=== PATIENT | male | born 1990 | race Caucasian/White ===

== ENCOUNTER 2019-02-03 15:44 | Inpatient (IN) | payer OTHER ==
[~2019-02-03] VITALS: Ht 182.9 cm; Wt 120.0 kg
--- NOTE | 2019-02-03 01:38 | NUR ---
DR. JOHNSON AT BEDSIDE ASSESSING PT. UPDATES PROVIDED. ORDERS GIVEN AND UPDATED.
--- NOTE | 2019-02-03 15:50 | NUR ---
PT BIB AMBULANCE FOR COMPLAINT OF ALTERED LEVEL OF CONSCIOUSNESS. PER FAMILY PT HAS BEEN INCREASINGLY MORE CONFUSED THE PAST FEW WEEKS. PT FAMILY STATES THAT THEY TOOK HIM TO GET EVALUATED BY A PSYCHIATRIST AND THEY TESTED HIS LITHIUM LEVELS AND PER FAMILY THEY WERE QUADRUPLE THE MAXIMUM AT "4.7" AND THEY FOUND OUT 2 HOURS NETWORK OPERATIONS SPECIALIST AND THEY WERE TOLD TO COME STRAIGHT TO THE HOSPITAL. PT IS AXO X2. UNABLE TO ANSWER THE DATE AND HIS BIRTHDAY, BUT AWARE OF HIS NAME AND LOCATION. PT IS WARM TO THE TOUCH. PT SKIN IS PALE AND CLAMMY WITH DRY ORAL MUCOSA. PER DAD HE IS NOT USUALLY THIS CONFUSED AND UNAWARE. PT IS AT BEDSIDE MAKING JOKES AND TALKING WTIH DAD. PT SPEACH IS SLURRED, BUT SPEAKING IN FULL SENTENCES. PT SEEMS SLIGHTLY LETHARGIC WITH SQUINTED EYES. PT PUPILS ARE 2 AND NON REACTIVE TO THE LIGHT. PT CONNECTED TO CARDIAC AND PLETH OX. PT BREATHING EQQUAL AND SLIGHTLY TACHYPNIC. FATHER AT BEDSIDE. AWAITING MSE.
--- NOTE | 2019-02-03 15:54 | NUR ---
MATHEW TORRES AT BEDSIDE FOR EKG
--- NOTE | 2019-02-03 16:02 | NUR ---
MD FOX AT BEDSIDE FOR MSE
--- NOTE | 2019-02-03 16:18 | NUR ---
1000ML NS INFUSED ENVIRONMENTAL EMERGENCIES ASSISTANT BY [facility]
--- NOTE | 2019-02-03 16:22 | NUR ---
LAB AT BEDSIDE FOR BLOOD DRAW
--- NOTE | 2019-02-03 16:38 | NUR ---
X RAY AT BEDSIDE
--- NOTE | 2019-02-03 16:46 | NUR ---
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 PASTEURIZER FOR WIDENED QRS AND WIDE QTC AND EKG IF QRS OVER 12O GIVE SODIUM BICARB BOLUS, DOSING IS 1-2 MEQ/KG IF QTC OVER 450 THEN WANT TO KEEP ELECTROLYTES UP SO K AT 4 OR HIGHER MAGNESIUM AT 2 OR HIGHER, CALCIUM AT 9 OR HIGHER. IN MEANTIME. GIVE NS AT LEAST 150/HR . KEEPING SODIUM AT HIGH NORMAL WILL HELP GET RID OF THE LITHIUM. CHECK CHEMISTRY AND LITHIUM LEVELS Q4H UNTIL THE LITHIUM LEVELS DECREASE AT LEAST TWO TIMES IN A ROW. AND THEN Q 6H UNTIL ITS LESS THAN 1.2 IF STARTS SEIZING OR STOPS MAKING URINE THEN WE MAY NEED DIALYSIS AND TO CALL POISON CONTROL BACK
--- NOTE | 2019-02-03 16:56 | NUR ---
MD FOX MADE AWARE OF WHAT POISON CONTROL SAID
--- NOTE | 2019-02-03 17:24 | NUR ---
PT ATTEMPTED TO URINATE IN THE URINAL- UNSUCCESSFUL.
[2019-02-03 17:33] LABS: BASOPHIL % 0.2 % (0-2); PLATELET COUNT 290 x10^3mcL (130-400)
[2019-02-03 17:39] LABS: CALCIUM 8.4 mg/dL (8.5-10.1); CARBON DIOXIDE 22.8 mmol/L (21-32); CREATININE SERUM 2.4 mg/dL (0.7-1.3); POTASSIUM SERUM 4.7 mmol/L (3.5-5.1)
[2019-02-03 17:41] LABS: RED CELL DISTRIBUTION WIDTH 16.8 % (11.5-14.5)
--- NOTE | 2019-02-03 17:42 | NUR ---
PT PROVIDED WITH WATER. PT AWARE WILL NEED CATHETER TO GET URINE IF HE DOES NOT PROVIDE URINE
[2019-02-03 17:43] LABS: ALBUMIN 2.9 g/dL (3.4-5.0); BILIRUBIN TOTAL 0.7 mg/dL (0.20-1.00); TOTAL PROTEIN, SERUM 6.2 g/dL (6.4-8.2)
[2019-02-03 18:49] LABS: UA SPECIFIC GRAVITY >=1.030 (1.005-1.035); microscopic required? YES; urine erythrocyte NEGATIVE (NEGATIVE)
[2019-02-03 19:00] LABS: AMPHETAMINE QUAL UR POSITIVE (See below)
[2019-02-03] MEDS ORDERED: LISINOPRIL10 MG PO (19:15)
[2019-02-03] MEDS ORDERED: LITHIUM CARBON300 MG PO (19:16)
[2019-02-03] MEDS ORDERED: BUPROPION HCL150 M1 PO (19:16)
[2019-02-03] MEDS ORDERED: GEMFIBROZIL600 MG PO (19:17)
[2019-02-03] MEDS ORDERED: ABILIFY20 M1 PO (19:17)
[2019-02-03] MEDS ORDERED: HYDROXYZINE HYD25 MG PO (19:18)
[2019-02-03] MEDS ORDERED: BUPROPION HYDR300 MG PO (19:19)
[2019-02-03] MEDS ORDERED: ADDERALL10 MG (19:19)
[2019-02-03] MEDS ORDERED: METFORMIN HCL1000 MG PO (19:20)
[2019-02-03] MEDS ORDERED: EVEKEO10 MG PO (19:22)
--- NOTE | 2019-02-03 19:28 | NUR ---
MD FOX AT BEDSIDE FOR INCREASING LETHARGY AND LOW BP OF 89/45
--- NOTE | 2019-02-03 19:30 | NUR ---
PT PLACED IN TRENDELENBERG FOR LOW BP OXYGEN TURNED OFF TEMPORARILY FOR ABG
--- NOTE | 2019-02-03 19:32 | NUR ---
RT AT BEDSIDE FOR BLOOD GAS
--- NOTE | 2019-02-03 19:45 | NUR ---
PT IS UNCCOPERATATIVE WITH STAFF AND BEGAN TO PULL AT LINES. RT AT BEDSIDE UNABLE TO COMPLETE ABG. DR FOX NOTIFIED. PARENTS AT BEDSIDE TO TRY TO CALM PT. PT CONTINUES TO TRY AND GET OUT OF BED. REDIRECTION AND DEESCALATION TECHINQUES UNSUCESSFUL.
--- NOTE | 2019-02-03 20:02 | NUR ---
FAMILY UPDATED ON STATUS OF PT AND MADE AWARE OF SITUATION. FAMILY UNDERSTANDS AND WILL WAIT TO SEE HIM PRIOR TO TRANSFER TO ICU PER REQUEST.
[2019-02-03 20:07] VITALS: BP 159/102
--- NOTE | 2019-02-03 20:16 | NUR ---
ATTEMPTED TO CALL ICU FOR REPORT. ASHLEE DANIEL BUSY AND TECH STATED SHE WILL CALL BACK WHEN SHES READY
--- NOTE | 2019-02-03 20:29 | NUR ---
TALBERT CATH PLACED WITH 200 CC URINE OUTPUT.
--- NOTE | 2019-02-03 20:37 | NUR ---
1947: ATOMODATE 20MG IVP BY MARÍA VASQUEZ. RT AT BEDSIDE FOR INTUBATION. DR FOX AT BEDSIDE. 1949:VECURONIUM 10MG GIVEN IVP BY MARÍA VASQUEZ. DR FOX AT BEDSIDE VITALS 93/60 P-93 R-31' 1952: PT LYING ON BACK. PT CONTINUES TO MOVE. RT AND DR FOX AT BEDSIDE. DR FOX TO ORDER 10MG VECURONIUM. DUE TO CONTINUED MOVEMENT 1954: PT GIVEN 10MG VECURONIUM IVP BY MARÍA VASQUEZ. RT AT BEDSIDE WITH APPROPRIATE BAGGING. INTUBATION COMPLETED. SEE INTUBATION LOG FOR STATS VITALS STABLE P-91 BP 161/109 O2 95% 1958 PROPAFOL STARTED AT 10MCG/KG. PT LYING ON BACK. PLACED IN GOWN AND GIVEN NEW SHEETS 1999: OG PLACED BY MARÍA VASQUEZ. X RAY AT BEDSIDE FOR VERIFICATION OF PLACEMENT OF INTUBATION.
--- NOTE | 2019-02-03 20:53 | NUR ---
PARENTS AT BEDSIDE. PT LYING ON BACK. RESPIRATIONS APPROPRIATE. NO AGITATION NOTED. PT VITALS STABLE.
--- NOTE | 2019-02-03 21:11 | NUR ---
TRIED TO CALL REPORT TO ICU. UNABLE TO TAKE REPORT AT THIS TIME.
[2019-02-03 21:25] VITALS: BP 143/98
--- NOTE | 2019-02-03 21:27 | NUR ---
REPORT GIVEN TO ASHLEE TO ASSUME CARE OR PT. RT CALLED FOR TRANSPORT WITH NURSE AND EMT PROPOFAL RUNNING.
--- NOTE | 2019-02-03 21:35 | NUR ---
RECEIVED PT INTUBATED AND SEDATED ON PROPOFOL @ 10 MCG/KG/MIN. RSS = 4. RESPONDS TO VERBAL, TACTILE, AND PAINFUL STIMULUS. PUPILS 3MM IN SIZE AND BRISK B/E. 8.0 ETT @ 23 LL. ETT TO VENT: VCV/AC MODE = 5 PEEP, 16 RATE, 80% FIO2, 650 VT. BREATHING E/U. CLEAR LUNG SOUNDS THROUGHOUT. NO SIGNS OF RESP DISTRESS NOTED. O2 SAT OF 100%. OGT INTACT AND SECURED. WHITE SECRETIONS NOTED TO MOUTH. TRACHEA MIDLINE. ABD IS SOFT AND ROUNDED. MOD PULSES TO BUE AND BLE. CAP REFILL <3 SEC TO BUE AND BLE. SKIN IS WARM/DRY TO TOUCH, PALE IN COLOR. NO EDEMA NOTED. PIV TO L HAND AND R AC INTACT, PORTS PATENT, DRESSINGS CDI. F/C INTACT AND DRAINING VIA GRAVITY. URINE IS DELMI IN COLOR. POOR OUTPUT NOTED. SKIN INTACT, NO OPEN WOUNDS NOTED. JOINTS INTACT, NO JOINT SWELLING NOTED. NO CONTRACTURES NOTED. WILL RESUME CARE.
--- NOTE | 2019-02-03 22:00 | NUR ---
DR. JOHNSON AT BEDSIDE ASSESSING PT. UPDATES PROVIDED. ORDERS GIVEN AND UPDATED.
[2019-02-03 22:10] VITALS: BP 157/106
[2019-02-03 22:35] VITALS: BP 149/91
--- NOTE | 2019-02-03 22:50 | NUR ---
PROPOFOL INFUSING @ 15 MCG/KG/MIN. PT RESTLESS AND MOVING HANDS TOWARDS ETT. RSS = 4. WILL CONTINUE TO MONITOR.
--- NOTE | 2019-02-03 23:00 | NUR ---
POISON CONTROL CALLED AND STATED TO HAVE LITHIUM LEVELS BE DRAWN Q4H. ALSO RECOMMENDS FOR HD BASED ON PT'S CURRENT LABS.
--- NOTE | 2019-02-03 23:36 | NUR ---
Spoke to Dr. Veras regarding pt having jerking movements. stated to monitor the patient. Dr. Veras informed about poison control recommendation. Dr. Veras stated to do a Ong level in the morning and the Risk control already notified about the patient's status and will decide tomorrow morning when they see the patient.
[2019-02-03 23:50] VITALS: BP 134/63
[2019-02-04] VITALS (19 sets, daily range): BP systolic 92–170; BP diastolic 40–95
--- NOTE | 2019-02-04 | NUR ---
AFTER MULTIPLE ATTEMPTS TO REORIENT AND DECREASE STIMULI, PT STILL REMAINS RESTLESS AND TRYING TO MOVE HANDS TOWARDS ETT AND OGT. BILATERAL SOFT WRIST RESTRAINTS APPLIED. JOINTS INTACT, NO JOINT SWELLING NOTED. WILL CONTINUE TO MONITOR.
--- NOTE | 2019-02-04 03:47 | NUR ---
PT STARTED BLEEDING FROM NOSE AND MOUTH. 500CC NOTED IN SUCTION CANISTER. DR. JOHNSON MADE AWARE ABOUT PT'S CONDITION AND STATED FOR "THE ER TO HELP WITH THE BLEEDING." NO NEW OTHER ORDERS AT THIS TIME.
[2019-02-04 05:13] LABS: PLATELET COUNT 272 x10^3mcL (130-400)
[2019-02-04 05:16] LABS: RED CELL DISTRIBUTION WIDTH 16.8 % (11.5-14.5)
[2019-02-04 05:25] LABS: BAND NEUTROPHIL 3 % (0-10); MONOCYTE 1 % (0-7); SEGMENTED NEUTROPHILS 89 % (37-75)
--- NOTE | 2019-02-04 05:25 | NUR ---
RADIOLOGY CALLED AND STATED THAT THE OGT WAS NOT IN PLACE AND WAS IN THE RIGHT BRONCHUS. OGT DISCONTINUED. BLOOD-TINGED SECRETIONS NOTED FROM MOUTH. ORAL CARE PROVIDED. VS STABLE. WILL CONTINUE TO MONITOR.
[2019-02-04 05:28] LABS: rbc morphology (normal/abnorm) ABNORMAL (NORMAL)
[2019-02-04 05:29] LABS: PLATELET MORPHOLOGY PLATELETS NORMAL; tear drop cell (dacryocyte) 1+
[2019-02-04 05:35] LABS: BILIRUBIN TOTAL 0.84 mg/dL (0.20-1.00); CALCIUM 8.5 mg/dL (8.5-10.1); CARBON DIOXIDE 18.4 mmol/L (21-32); CREATININE SERUM 1.9 mg/dL (0.7-1.3); POTASSIUM SERUM 4.8 mmol/L (3.5-5.1)
[2019-02-04 05:41] LABS: ALBUMIN 2.6 g/dL (3.4-5.0); TOTAL PROTEIN, SERUM 5.3 g/dL (6.4-8.2)
--- NOTE | 2019-02-04 07:10 | NUR ---
GIVEN REPORT TO ERI DANIEL. ALL QUESTIONS AND CONCERNS ADDRESSED. WILL ENDORSE CARE.
--- NOTE | 2019-02-04 07:15 | NUR ---
PT RESTING IN BED. SEDATED ON PROPOFOL @ 30 MCG/KG/MIN. RSS 4. RESPONDS TO VERBAL STIMULI. PERIODS OF AGITATION NOTED. PROPOFOL INCREASED TO 35 MCG/KG/MIN. OPENS EYES SPONT. DOES NOT FOLLOW COMMANDS. ETT 8.0 AND 23 @ LL INTACT AND SECURED ATTACHED TO VENT VCV AC MODE SETTINGS: VT 600, RR 16, PEEP 5 AND FIO2 50%. CHEST EXPANSION SYMM, BREATHING E/U AND REGULAR EFFORT. BLOODY SECRETIONS NOTED TO ETT. CREW DIRECTOR IN PLACE. NSR ON MONITOR. ABD ROUND, SOFT. NO EDEMA NOTED. BILATERAL SOFT WRIST RESTRAINTS IN PLACE WITH PULSES PALPABLE DISTALLY. NS INFUSING @ 150 ML/HR. BED IN LOWEST POSITION, CALL LIGHT WITHIN REACH.
--- NOTE | 2019-02-04 09:00 | NUR ---
DR. GALAVIZ ON PHONE WITH FABIANA BELLOEZA, PT'S FATHER, DISCUSSED LASHELL CATHETER PLACEMENT AND NEED FOR TEMPORARY HEMODIALYSIS. RISKS/BENEFITS EXPLAINED. CONFIRMED WITH PT'S FATHER AND IS IN AGREEMENT.
--- NOTE | 2019-02-04 10:05 | NUR ---
SPOKE WITH TAURUS FROM POISON CONTROL. UPDATED ON LAB VALUES AND VITAL SIGNS. PER TAURUS RECOMMENDATION IS DIALYSIS. INFORMED OF CURRENT ORDERS FOR DIALYSIS AND STATES SHE IS IN AGREEMENT. WILL CALL BACK LATER FOR UPDATES S/SX TO WATCH FOR: HYPOTENSION, SEIZURE PRECAUTIONS, AND ENCEPHALOPATHY.
--- NOTE | 2019-02-04 10:12 | NUR ---
PT'S PARENTS, FABIANA AND ROCKY, AT BEDSIDE. UPDATED ON PLAN OF CARE. VERBALIZE UNDERSTANDING.
--- NOTE | 2019-02-04 11:15 | NUR ---
DR. MEDINA, ALICJA MODEL AND MOLD MAKER PLASTER ADN MYSELF AT BEDSIDE FOR RIGHT FEMORAL LASHELL PLACEMENT.
--- NOTE | 2019-02-04 11:48 | NUR ---
RIGHT FEMORAL LASHELL CATHETER COMPLETED AT THIS TIME BY DR. MEDINA. PT TOLERATED WELL. ONE DOSE 2 MG IVP ATIVAN GIVEN FOR PROCEDURE (SEE EMAR)
--- NOTE | 2019-02-04 12:06 | NUR ---
OGT INSERTED AT THIS TIME. AIR BOLUS AUSCULTATED. XRAY ORDERED FOR VERIFICATION
--- NOTE | 2019-02-04 12:29 | NUR ---
ABG OBTAINED ON VENT AT 40% FIO2. PA02 69.9 SO FIO2 TITRATED BACK UP TO 50%. RN NOTIFIED. UNABLE TO OBTAIN STATIC COMPLIANCE OR PLATEAU PRESSURE AT THIS TIME, VENT IS UNABLE TO ACHIEVE STABILITY TO MEASURE.
--- NOTE | 2019-02-04 13:50 | NUR ---
SPOKE WITH DR. CASTLE AND UPDATED ON KUB RESULTS. STATES NO CT AT THIS TIME AND TO INPUT ORDER FOR OK TO USE OGT. WILL COMPLETE ORDERS GIVEN
--- NOTE | 2019-02-04 14:15 | NUR ---
HD COMPLETE AT THIS TIME. FILTRATION ONLY. PER HD RN MAY NEED SECOND ROUND TOMORROW AND TO ASK TEAM FACILITATOR WHEN HE IS NEXT IN
--- NOTE | 2019-02-04 16:12 | NUR ---
GRV 10 ML. GLUCERNA TF INITIATED @ 10 ML/HR WITH 50 ML FWF Q6H. WILL CONTINUE TO MONITOR
--- NOTE | 2019-02-04 18:10 | NUR ---
SPOKE WITH TAURUS FROM POISON CONTROL. UPDATES PROVIDED
--- NOTE | 2019-02-04 19:20 | NUR ---
REC'D REPORT FROM ERI DANIEL TO ASSUME CARE. PT INTUBATED AND SEDATED ON PROPOFOL 35 MCG/KG/MIN WITH RSS 4. PERRLA NOTED. UNABLE TO FOLLOW COMMANDS. 8.0 ETT SECURED, 24 CM @ LL. NO JVD NOTED. TRACHEA MIDLINE. OGT INTACT AND SECURED. ETT TO VENT: AC MODE, RATE 16, TV 600, PEEP 5, FIO2 50%. CHEST RISE EQUAL AND SYMMETRICAL. LUNG SOUNDS RHONCHI BUL, DIM BASES. SENIOR SOLUTIONS CONSULTANT IN PLACE SHOWING NSR. BP 107/70 MAP 81, HR 81. CHEST WALL STABLE. PULSES PALPABLE X4. CAP REFILL < 3 SECS. NO EDEMA NOTED. IV TO L HAND AND RAC INTACT AND PATENT. IVF NS INFUSING @ 150ML/HR. ABLE TO MOVE ALL EXT. BUE SOFT WRIST RESTRAINTS IN PLACE FOR PT SAFETY. OGT INTACT AND PATENT, GLUCERNA INFUSING @ 10ML/HR, FWF 50ML Q4H. GRV=0. ABD ROUND, SOFT, NONTENDER TO TOUCH. BOWEL SOUNDS ACTIVE. NO EPISODES OF N/V NOTED. F/C INTACT AND PATENT DRAINING VIA GRAVITY DELMI COLORED URINE. NO SCROTAL EDEMA OR PENILE DISCHARGE NOTED. SKIN INTACT. WARM DRY TO TOUCH. TEMP 101.0 F, COOLING MEASURES AND TYLENOL PROVIDED. PTS MOTHER AND FATHER AT BEDSIDE. UPDATED ON PLAN OF CARE, VERBALIZED UNDERSTANDING. ALL NEEDS MET AT THIS TIME. WILL CONTINUE TO MONITOR.
--- NOTE | 2019-02-04 20:30 | NUR ---
PATRICIO TINAJERO AT BEDSIDE, ASSISTED TO CHANGE ANCHOR FAST ON ETT.
--- NOTE | 2019-02-04 23:00 | NUR ---
VENT ALARM HIGH PRESSURING, PT SEEN BITING ON TUBE. PROPOFOL TITRATED UP TO 45 MCG/KG/MIN.
[2019-02-05] VITALS (19 sets, daily range): BP systolic 103–125; BP diastolic 51–78
--- NOTE | 2019-02-05 04:30 | NUR ---
COOL BED BATH PROVIDED. NO BM NOTED. LINENS CHANGED. F/C AND VAP CARE PROVIDED. TURNED AND REPOSITIONED Q2H FOR PRESSURE RELIEF.
--- NOTE | 2019-02-05 04:47 | NUR ---
PT WITH RSS 5, FENTANYL TITRATED DOWN TO 35 MCG/KG/MIN.
[2019-02-05 05:43] LABS: PLATELET COUNT 133 x10^3mcL (130-400); RED CELL DISTRIBUTION WIDTH 14.3 % (11.5-14.5)
[2019-02-05 06:04] LABS: ALKALINE PHOSPHATASE 108 U/L (46-116); ALT/SGPT 36 U/L (16-63); AST/SGOT 89 U/L (15-37); BILIRUBIN TOTAL 0.85 mg/dL (0.20-1.00); CALCIUM 8.6 mg/dL (8.5-10.1); CARBON DIOXIDE 39.9 mmol/L (21-32); CHLORIDE SERUM 101 mmol/L (98-107); CREATININE SERUM 0.9 mg/dL (0.7-1.3); GFR1 > 60 mL/min; GLUCOSE SERUM 143 mg/dL (74-106); MAGNESIUM 1.6 mg/dL (1.8-2.4); MONOCYTE 9 % (0-7); MYELOCYTE 1 % (0-2); SEGMENTED NEUTROPHILS 65 % (37-75); SODIUM SERUM 146 mmol/L (136-145)
[2019-02-05 06:07] LABS: TOTAL IRON BINDING CAPACITY 258 ug/dL (250-450); rbc morphology (normal/abnorm) ABNORMAL (NORMAL); schistocyte (helmet cell) 1+
[2019-02-05 06:08] LABS: PLATELET MORPHOLOGY PLATELETS DECREASED
[2019-02-05 06:11] LABS: ALBUMIN 2.5 g/dL (3.4-5.0); PHOSPHOROUS 0.9 mg/dL (2.5-4.9); TOTAL PROTEIN, SERUM 5.1 g/dL (6.4-8.2)
[2019-02-05 06:12] LABS: POTASSIUM SERUM 2.6 mmol/L (3.5-5.1)
[2019-02-05 06:16] LABS: IRON 12 ug/dL (65-170)
--- NOTE | 2019-02-05 06:20 | NUR ---
CALLED [facility], RELAYED ALL CRITICAL LAB VALUES. TELEPHONE GIVEN TO TRANSFUSE 2 UNITS OF PRBC, POTASSIUM CHLORIDE 40MEQ X1, K-PHOS 3OMM X1 NOW. TELEPHONE ORDER READ BACK. ORDER NOTED AND CARRIED OUT.
--- NOTE | 2019-02-05 06:29 | NUR ---
CALLED FABIANA (FATHER) FOR BLOOD TRANSFUSION CONSENT, ALL QUESTIONS AND CONCERNS ADDRESSED, CONSENT GIVEN BY FABIANA (FATHER). ELZBIETA DANIEL WITNESSED CONSENT.
--- NOTE | 2019-02-05 08:28 | NUR ---
RR 41 ON VENTILATOR. PT BITING ON ETT. PROPOFOL TITRATED FROM 35 MCG/KG/MIN TO 40 MCG/KG/MIN
--- NOTE | 2019-02-05 08:30 | NUR ---
BLISTERING NOTED TO LEFT LATERAL INDEX FINGER 1ST METACARPAL JOINT. L HAND IV SITE FLUSHED, NO S/SX OF INFILTRATION AND SITE WNL. WILL PHOTOGRAPH AND PLACE IN CHART.
--- NOTE | 2019-02-05 08:51 | NUR ---
FI02 TITRATED DOWN TO 40% BY RT LUIS. CURRENT 02 SAT 100%. NO SIGNS OF RESP DISTRESS. WILL CONTINUE TO MONITOR.
--- NOTE | 2019-02-05 09:33 | NUR ---
SCD'S APPLIED TO BLE.
--- NOTE | 2019-02-05 09:45 | NUR ---
BLE SCDS PLACED ON PT AT THIS TIME.
--- NOTE | 2019-02-05 10:12 | NUR ---
SPOKE WITH TAURUS FROM POISON CONTROL. UPDATED ON LABS. STATES LITHIUM HAS A POTENTIAL TO REBOUND AND RECOMMENDS REPEAT LITHIUM LEVEL AT SOME POINT TODAY.
--- NOTE | 2019-02-05 10:25 | NUR ---
FI02 TITRATED DOWN TO 30% BY RT LUIS. CURRENT 02 SAT 96%. NO SIGNS OF RESP DISTRESS. WILL CONTINUE TO MONITOR.
--- NOTE | 2019-02-05 12:27 | NUR ---
DR. CASTLE AT BEDSIDE SPEAKING WITH PT'S MOTHER. UPDATED ON PLAN OF CARE. PER DR. SANTOS PLAN OF CARE IS TO POTENTIALLY EXTUBATE TOMORROW USING SBT AND RSV WEANING PARAMETERS. MOTHER IN AGREEMENT. PT MAY REQUIRE PRECEDEX R/T AUTISM. POISON CONTROL RECOMMENDATION GIVEN TO DR. SANTOS.
--- NOTE | 2019-02-05 13:13 | NUR ---
Initial Nutrition Assessment: [facility] ICU-6 Dx: Ammonia, lithium toxicity PMHx: ADHD, anxirty, Bipolar, Autisim PSHx: None Labs: (02/05) Na:146H, K:2.6L, BH, Phos:0.9L, AST:89H, A1c:8H, WBC:20H, H/H:6.6/19L Meds: Ativa, Diprivan, Flagyl, Humulin, Lovenox, Protonix, NS IV, Current nutrition support: Glucerna at 10ml/hr. TF Intake: (02/05) 130ml I/O: (02/04) 1233/1250(-17ml) (02/05) 4353/1610(+2743ml) Ht: 72in, 6 ft Wt: 264#, 120kg BMI: 35.9kg/m2 (obese) Bed scale: (02/05) 120kg IBW:178#, 81kg %IBW:148% UBW: unable to obtain Age: 28 y/o male Food Allergies: NKFA Skin:blister to left finer Oscar: 12 Edema: trace non-pitting edema. NS infusing at 150ml/hr GI:hypoactive bowel sounds Last BM: no BM noted Nutrition Consult: TF goal Per H&P, pt accidentally took Lyrica which belonged to his mother. Pt became hypotensive in the ER and received bolus of fluid. Pt became combative, hypotensice adn desaturated in the ER and was intubated. RD received call from RN regarding nutrition consult placed yesterday for TF. RD recommended Glucerna at 55ml/hr, FWF:50ml q 4hr via NGT to better meet pts estimated needs. Current Nutrition support of Glucerna at 10ml/hr provides:288kcal, 14g protein. Problem with: N/V/D/C: No Problems with: Chewing: Swallowing: No Current appetite: N/A due to current NPO status on TF Recent wt change:unable to obtain %wt change:N/A Vitamin/Supplement use:None per H&P Special diet at home: Physical activity:unable to obtain Nutrition education given : not appropriate at this time due to pt intubated and sedated Food-drug interactions? Education given? No Estimated Nutritional Needs Based on actual body weight 120kg Vent in L/min: 15 Temperatire:37.2, MAP:85 Energy: 5012-6016 vs 2431kcal/d (25-30kcal/kg using IBW:81kg vs. PSU 2003b for vent ) Protein: 81-97g/d (1-1.2g/kg of IBW:81kg for maintenance) Fluid: 2000-2400ml/d (1 ml/kcal) or per doctor Nutrition Diagnosis 1. Inadequate enteral nutrition infusion related to low TF rate as evidenced by current TF rate only meeting 12% caloric needs and 17% protein needs. Intervention 1. Recommend increase goal rate of Glucerna 1.2 to 55ml/hr, FWF:50ml m1 q 6hr to provide 1584kcal, 86g protein and 1263ml total fluid daily. Propofol at 40mcg/kg/min provides an additional 760kcal. TF and Propofol provide total 2344kcal, 86g protein. This meets 100% caloric and protein needs. Monitor/Evaluate Goal: TF intake at least 75% of estimated needs Monitor: TF/tolerance intake, Labs, GI function F/U in 2-3 days as high risk: 6/4-5
--- NOTE | 2019-02-05 14:23 | NUR ---
GRV 0 ML. ABD SOFT, ROUND. TF INCREASED FROM 10 ML/HR TO 20 ML/HR.
--- NOTE | 2019-02-05 14:42 | NUR ---
1 UNIT PRBC INITIATED AT THIS TIME. R HAND 20G PERIPHERAL IV SITE INITIATED FOR BLOOD ADMINISTRATION NO S/SX OF INFILTRATION. SEE BLOOD BANK SHEET FOR VITAL SIGNS.
--- NOTE | 2019-02-05 17:00 | NUR ---
DR. GALAVIZ AT BEDSIDE SPEAKING WITH PT'S GIRLFRIEND AND FATHER UPDATES PROVIDED AND ALL QUESTIONS ADDRESSED
--- NOTE | 2019-02-05 17:00 | NUR ---
DR. GALAVIZ AT BEDSIDE SPEAKING WITH PT'S MOTHER. ALL QUESTIONS ADDRESSED. STATES WE WILL CONTINUE TO MONITOR LITHIUM LEVEL AND IF REMAINS TRENDING DOWNWARDS THEN NO MORE DIALYSIS WILL BE REQUIRED
--- NOTE | 2019-02-05 17:56 | NUR ---
GRV 15 ML. ABD SOFT,R OUND. TF INCREASED FROM 20 ML/HR TO 30 ML/HR
--- NOTE | 2019-02-05 19:15 | NUR ---
RECEIVED PT INTUBATED AND SEDATED ON PROPOFOL @ 40 MCG/KG/MIN, RSS=4. PT RESPONDS TO TACTILE STIMULI, UNABLE TO FOLLOW SIMPLE COMMANDS. PUPILS 3MM BRISK RESPONSE TO LIGHT B/L, PERRLA. NO FACIAL DROOP. GAG REFLEX PRESENT WHEN SUCTIONED.PT INTUBATED TO VENT, INTACT. OGT INTACT/SECURED, AIR AUSCULTATED OVER GASTRIC REGION FOR PLACEMENT, CONFIRMED BY XRAY. TRACHEA MIDLINE, NO DRAINAGE TO EENT.ETT 8.0, 24 LL. ORAL CARE PROVIDED PER VAP PROTOCOL. VENT SETTINGS VCV-AC MODE FIO2 30%, RATE 16, VT 600, PEEP 5. LUNG SOUNDS RHONCHI BUL, DIMINISHED BASES. CHEST RISE/FALL SYMMETRIC, E/U BREATHING.S1/S2 SOUNDS HEARD, CHEST WALL STABLE, NO S/S OF CHEST PAIN.SKIN COLOR CONSISTENT WITH ETHNICITY, CAP REFILL <3 SEC X4 EXTREMITIES, PULSES MODERATE X4 EXTREMITIES. NON PITTING EDEMA TO BUE. SCDS. BLOOD TRANSFUSION INFUSING AT THIS TIME.GEN WEAKNESS. NO CONTRACTURES/DEFORMITIES, PT ON TURN SCHED Q2H. RESTRAINTS ON FOR PT SAFETY PT REACHES FOR ETT/OGT WHEN RESTRAINTS OFF. JOINTS INTACT.GLUCERNA TUBE FEEDING INFUSING @ 30 ML/HR, FWF 50 ML Q6H. GRV=0. TOLERATING WILL ADVANCE. NO S/S OF N/V.ACTIVE BOWEL SOUNDS X4 QUADRANTS, ABD SOFT/ROUND. NO BM NOTED.F/C DRAINING TO GRAVITY INTACT, DELMI URINE. NO PENILE EDEMA OR DISCHARGE NOTED. RIGHT FEMORAL LASHELL CATH, CDI. IV TO RAC, RH, LH PORTS PATENT, INFUSING, NO S/S OF INFILTRATION. SKIN WARM TO TOUCH. BLISTER NOTED TO LEFT HAND FINGER, NYA. BED AT LOWEST SETTING, CALL LIGHT WITHIN REACH, HOB ELEVATED 30 DEGREES, FAMILY UPDATED ON POC.
--- NOTE | 2019-02-05 20:15 | NUR ---
BLOOD TRANSFUSION FINISHED AT THIS TIME, NO S/S OF ANY ADVERSE BLOOD TRANSFUSION REACTIONS NOTED. PT REMAINS INTUBATED. VITAL SIGNS, TEMP 100.3, PULSE 84, NIBP 109/61, RESP 26 VENT, O2 94%.
--- NOTE | 2019-02-05 21:17 | NUR ---
AXILLARY TEMP TAKING, 101.1. ADMINISTERING TYLENOL PER EMAR. COOLING MEASURES IN PLACE AT THIS TIME WITH ICE PACKS AND BLANKETS OFF.
--- NOTE | 2019-02-05 22:00 | NUR ---
TF INCREASED FROM 30 ML/HR TO 40 ML/HR. GRV 15 ML. ABD SOFT, ROUND. PT TOLERATING. NO BM.
--- NOTE | 2019-02-05 22:16 | NUR ---
RECHECKED AXILLARY TEMP POST TYLENOL, TEMP 101.3. COOLING MEASURES REMAIN INTACT. BLANKETS REMAIN OFF, TEMPERATURE IN ROOM DECREASED. DR. JOHNSON MADE AWARE IN PERSON AT NURSING STATION
--- NOTE | 2019-02-05 22:45 | NUR ---
PROPOFOL TITRATED TO 50 MCG/KG/MIN TO ACHEIVE RSS=4. PT RSS=3 AT THIS TIME, EYES OPEN UPON ENTERING ROOM MOVING BUE EXTREMITIES AND HEAD, UNABLE TO FOLLOW COMMANDS. PT RESPIRATION IN THE 30'S.
[2019-02-06] VITALS (16 sets, daily range): BP systolic 96–148; BP diastolic 55–78
--- NOTE | 2019-02-06 01:16 | NUR ---
AXILLARY TEMP 100.0. WILL ADMINISTERING TYLENOL PER EMAR. COOLING MEASURES IN PLACE AT THIS TIME WITH ICE PACKS AND BLANKETS OFF.
--- NOTE | 2019-02-06 02:00 | NUR ---
TF INCREASED FROM 40 ML/HR TO 50 ML/HR. GRV 15 ML. ABD SOFT, ROUND. PT TOLERATING. NO BM.
--- NOTE | 2019-02-06 05:50 | NUR ---
PROPOFOL TITRATED TO 40 MCG/KG/MIN FOR WEANING TRIALS IN AM.
--- NOTE | 2019-02-06 06:00 | NUR ---
TF INCREASED FROM 50 ML/HR TO 55 ML/HR. GRV 10 ML. ABD SOFT, ROUND. PT TOLERATING. NO BM. GOAL MET ON TUBE FEEDING.
--- NOTE | 2019-02-06 06:09 | NUR ---
AXILLARY TEMP 100.1. ADMINISTERING TYLENOL PER EMAR. COOLING MEASURES INTACT PLACE AT THIS TIME WITH ICE PACKS AND BLANKETS OFF.
[2019-02-06 06:10] LABS: CALCIUM 9.2 mg/dL (8.5-10.1); CARBON DIOXIDE 21.9 mmol/L (21-32); CHLORIDE SERUM 111 mmol/L (98-107); CREATININE SERUM 1.1 mg/dL (0.7-1.3); GFR1 > 60 mL/min; GLUCOSE SERUM 266 mg/dL (74-106); MAGNESIUM 1.9 mg/dL (1.8-2.4); POTASSIUM SERUM 4.3 mmol/L (3.5-5.1); SODIUM SERUM 141 mmol/L (136-145)
--- NOTE | 2019-02-06 06:20 | NUR ---
PROPOFOL TITRATED TO 30 MCG/KG/MIN FOR WEANING TRIALS IN AM.
--- NOTE | 2019-02-06 06:30 | NUR ---
PROPOFOL TITRATED TO 10 MCG/KG/MIN FOR WEANING TRIALS IN AM.
--- NOTE | 2019-02-06 06:30 | NUR ---
PROPOFOL TITRATED TO 20 MCG/KG/MIN FOR WEANING TRIALS IN AM.
--- NOTE | 2019-02-06 06:40 | NUR ---
PROPOFOL TITRATED TO 10 MCG/KG/MIN FOR WEANING TRIALS IN AM.
--- NOTE | 2019-02-06 06:50 | NUR ---
PROPOFOL TITRATED OFF FOR WEANING TRIALS IN AM.
--- NOTE | 2019-02-06 07:14 | NUR ---
GAVE REPORT TO GO SANCHEZ RN. UPDATES GIVEN, QUESTIONS ANSWERED, ENDORSED CARE.
--- NOTE | 2019-02-06 07:30 | NUR ---
PATIENT BREATHING 50'S, UNABLE TO FOLLOW COMMANDS, BITING ON ETT, DESATING TO 80'S. PROPOFOL INITIATED BACK AT MAX DOSE 50 MCG/KG/HR.
[2019-02-06 07:57] LABS: BASOPHIL % 0.3 % (0-2); PLATELET COUNT 233 x10^3mcL (130-400)
[2019-02-06 07:59] LABS: RED CELL DISTRIBUTION WIDTH 15.9 % (11.5-14.5)
--- NOTE | 2019-02-06 08:35 | NUR ---
PATIENT AGITATED AND BREATHING 40'S, MAXED ON PROPOFOL, ATIVAN PRN GIVEN AT THIS TIME.
--- NOTE | 2019-02-06 16:17 | NUR ---
PER , INITIATE PRECEDEX DRIP FOR WEANING FOR PATIENT FOR TOMORROW. PRECEDEX INITIATED AT 0.2 MCG/KG/HR. PRIMARY RN DANIEL DE LEON AND AT BEDSIDE.
--- NOTE | 2019-02-06 18:57 | NUR ---
PT RECIEVED OFF PROPOFOL IN A.M./PT VERY AGITATED, DESATURATING ON VENT AND BITING E.T. HARD/PT OFF PROPOFOL 90MINUTES AND STILL NOT FOLLOWING COMMANDS/PT BACK TO PROPOFOL,, HAD TO INCREASE FIO2 TO 60% from 30%, and increase sedation to 50mcgs/pt otherwise pulled ngt out, too agitated to replace but will try later//hr sinus with 1st degree avb, bp stable and pt cannot tell if symptomatic
--- NOTE | 2019-02-06 19:00 | NUR ---
RECIEVED REPORT FOR PT. RESUMED CARE OF PT. SEE SHIFT ASSESSMENT.
--- NOTE | 2019-02-06 19:03 | NUR ---
1400-pt still too agitated to replace ngt/precidex ordered for weaning after propofol off and if pt remains agitated but credit charge authorizer insisted run precidex with propofol/pt family at bedside/pt asfebrile now/mw
--- NOTE | 2019-02-06 19:05 | NUR ---
1700 off precidex/only propofol on board now//pt sedated well and fio2 is 40% now/pt cleaned AND repositioned/tolerated well, still too much fight to replace ngt//mw
[2019-02-07] VITALS (19 sets, daily range): BP systolic 94–135; BP diastolic 46–79
--- NOTE | 2019-02-07 | NUR ---
PT STILL RESTING CALMLY IN BED. WILL CONT TO MONITOR.
--- NOTE | 2019-02-07 01:00 | NUR ---
COOLING MEASURES IN PLACE.
--- NOTE | 2019-02-07 01:02 | NUR ---
PT W/ ELEVATED TEMP 100.3. COOLING MEASURES IN PLACE. WILL CONT TO MONITOR.
[2019-02-07 05:29] LABS: BASOPHIL % 0.5 % (0-2); PLATELET COUNT 302 x10^3mcL (130-400)
[2019-02-07 05:32] LABS: RED CELL DISTRIBUTION WIDTH 16.3 % (11.5-14.5)
[2019-02-07 05:41] LABS: CALCIUM 9.2 mg/dL (8.5-10.1); CARBON DIOXIDE 16.8 mmol/L (21-32); CHLORIDE SERUM 114 mmol/L (98-107); CREATININE SERUM 0.9 mg/dL (0.7-1.3); GFR1 > 60 mL/min; GLUCOSE SERUM 215 mg/dL (74-106); MAGNESIUM 1.9 mg/dL (1.8-2.4); POTASSIUM SERUM 4.6 mmol/L (3.5-5.1); SODIUM SERUM 144 mmol/L (136-145)
--- NOTE | 2019-02-07 05:44 | NUR ---
ATTEMPTED TO PLACE OGT AND NGT W/ NO SUCCESS. PT WIGGLING HEAD IN REFUSAL AND NOSE BLEED PRESENT UPON INSERTION OF NG TUBE. WILL ENDORSE AND CONT TO MONITOR.
--- NOTE | 2019-02-07 07:25 | NUR ---
REPORT GIVEN TO MARÍA SHEPARD. ALL CONCERNS ADDRESSED. RELEASED FROM CARE OF PT.
--- NOTE | 2019-02-07 07:45 | NUR ---
PATIENT REMAINS INTUBATED AND SEDATED WITH PRECEDEX AT 0.4MCG/KG/HR; PATIENT OPENS HIS EYES TO TACTILE STIMULI BUT UNABLE TO FOLLOW COMMANDS. PIL PUPILS WITH BRISK REACTION 3MM TO LIGHT. PATIENT STARTS TO KICK, SHADE HIS HEAD, MOVES HIS ARMS AND BODY AND DOES NOT WANT TO CARE; PRECEDEX TITRATED UP TO 0.6MCG/KG/HR. ETT 8.0 SECURED AT 24CM AT LIPLINE. ETT TO VENT VIA VCV/AC MODE: FIO2 40%, RATE 16, VT 600 AND PEEP 5. PATIENT HAS FREQUENT EPISODES OF FAST BREATHING WITH RR >30S. IVF NS AT 150ML/HR. IV SITES TO RAC, RIGHT HAND AND LEFT HAND. TELE # 6 READS NORMAL SINUS RHYTHMS AT THIS TIME. LASHELL CATH SITE AT RIGHT FEMORAL WITH DRESSING INTACT. SOFT WRIST RESTRAINTS TO BOTH WRISTS. WILL RELEASE THE RESTRAINTS FOR ROM Q2HR/PRN. HEAD OF BED ELEVATED; SIDE RAILS UP X3. BED IS AT LOWEST POSITION, AND ALARM IS ON.
--- NOTE | 2019-02-07 07:50 | NUR ---
PATIENT IS SO RESTLESS/AGITATED; BITING, KICKING AND MOVING IN BED. ATIVAN 1MG IVP MEDICATED TO THE PATIENT PRN ORDERED.
--- NOTE | 2019-02-07 07:50 | NUR ---
PATIENT IS SO RESTLESS/AGITATED; BITING TUBE, MOVING AND KICKING. ATIVAN 1MG IVP GIVEN TO THE PATIENT AND PRECEDEX TITRATED TO 0.7MCG/KG/HR.
--- NOTE | 2019-02-07 08:30 | NUR ---
THE PATIENT IS RESTLESS AGAIN AFTER CHEST XR TAKEN; PRECEDEX TITRATED FROM 0.6MCG/KG/HR TO 0.7MCG/KG/HR.
--- NOTE | 2019-02-07 09:27 | NUR ---
THE PATIENT IS SO RESTLESS; FIGHTING THE VENT WITH RR WENT UP TO 40S. THE FAMILY (MOTHER AND SISTER) IS AT BEDSIDE TO COMFORT THE PATIENT BUT THE PATIENT IS STILL RESTLESS. ATIVAN 2MG IVP IS ADMISTERED TO THE PATIENT TO COMFORT THE PATIENT.
--- NOTE | 2019-02-07 09:56 | NUR ---
SPOKE TO DR SANTOS AND PROVIDED PATIENT UPDATE. NEW ORDERS RECEIVED. WILL CARRY OUT ORDERS. WILL CONTINUE TO MONITOR.
--- NOTE | 2019-02-07 10:19 | NUR ---
PROPOFOL INITIATED AT 25MCG/KG/MIN AND PRECEDEX TITRATED DOWN TO 0.5MCG/KG/HR.
--- NOTE | 2019-02-07 10:40 | NUR ---
KYLER FROM POISON CONTROL CALLED AND ASKED FOR UPDATE. UPDATE INCLUDING LAB RESULT PROVIDED TO KYLER.
--- NOTE | 2019-02-07 10:50 | NUR ---
PATIENT'S SPO2 88%. FIO2 ON VENT TITRATED FROM 40% TO 65%. LUIS TINAJERO MADE AWARE.
--- NOTE | 2019-02-07 11:12 | NUR ---
PATIENT'S SPO2 98%. FIO2 ON VENT TITRATED TO 40%. LUIS RT ON UNIT AND MADE AWARE.
--- NOTE | 2019-02-07 13:33 | NUR ---
DR. NGUYEN IN TO SEE THE PATIENT AND WAS UPDATED OF THE PATIENT'S STATUS.
--- NOTE | 2019-02-07 15:15 | NUR ---
ATTEMPTING TO TITRATE PROPOFOL DRIP DOWN TO 30MCG/KG/MIN OR PRECEDEX DOWN TO 4MCG/KG/HR; HOWEVER, THE PATIENT STARTS TO FIGHT THE VENT AND RR INCREASE TO 50S. PROPOFOL MAINTAINS AT 40MCG/KG/MIN AND PRECEDEX AT 0.6MCG/KG/HR.
--- NOTE | 2019-02-07 16:28 | NUR ---
SCREEN FOR LOW PAOLA SCALE AT RISK PRESSURE ULCER INJURY PREVENTION INTERVENTIONS IN PLACE. -TURN AND REPOSITION PATIENT Q 2H OFFLOAD LEFT AND RIGHT HIPS -ASSESS AND MONITOR SKIN CONDITION DURING POSITION CHANGE -OFFLOAD BILATERAL HEELS BY PLACING PILLOWS UNDER CALVES AT ALL TIMES, UNLESS OTHERWISE CONTRAINDICATED -PRESSURE REDISTRIBUTION SURFACE THERAPY -KEEP SKIN CLEAN AND DRY AT ALL TIMES.
--- NOTE | 2019-02-07 17:43 | NUR ---
PATIENT JUST HAD OGT INSERTED BY THE CHARGE NURSE. PATIENT TOLERATED WITH THE PROCEDURE. KUB WAS ORDERED TO VERIFY THE OGT PLACEMENT.
--- NOTE | 2019-02-07 18:37 | NUR ---
THE PATIENT WAS GIVEN A BED BATH; GOWN AND LINEN CHANGED. THE OGT REMAINS CLAMPED AND AWAITING FOR KUB RESULT TO VERIFY THE PLACEMENT BEFORE TUBE FEEDING IS RESUMED.
--- NOTE | 2019-02-07 18:55 | NUR ---
DR. CASTLE IN TO SEE THE PATIENT AND TALKS TO THE PATIENT'S FAMILY INCLUDING THE MOTHER.
--- NOTE | 2019-02-07 19:15 | NUR ---
REPORT GIVEN TO DHEERAJ REYES RN. CONCERNS ADDRESSED.
--- NOTE | 2019-02-07 19:23 | NUR ---
DR. CASTLE WAS INFORMED THAT LOVENOX WAS HELD THIS MORNING DUE TO BLOODY SECRETION UPON SUCTIONING. DOCTOR AGREED WITH THAT.
[2019-02-08] VITALS (13 sets, daily range): BP systolic 101–140; BP diastolic 45–91
[2019-02-08 05:37] LABS: BASOPHIL % 0.7 % (0-2); CALCIUM 9.2 mg/dL (8.5-10.1); CHLORIDE SERUM 115 mmol/L (98-107); CREATININE SERUM 1.1 mg/dL (0.7-1.3); GFR1 > 60 mL/min; GLUCOSE SERUM 334 mg/dL (74-106); MAGNESIUM 1.8 mg/dL (1.8-2.4); PLATELET COUNT 314 x10^3mcL (130-400); POTASSIUM SERUM 4.6 mmol/L (3.5-5.1); SODIUM SERUM 144 mmol/L (136-145)
[2019-02-08 05:44] LABS: RED CELL DISTRIBUTION WIDTH 15.3 % (11.5-14.5)
--- NOTE | 2019-02-08 07:20 | NUR ---
RECIEVED REPORT FROM MARÍA REYES TO ASSUME ALL CARES. ALL QUESTIONS AND CONCERNS ADDRESSED. PATIENT IS SEDATED ON DIPRIVAN AND PREDEX DRIP. RSS-5. ETT TO VENT. RESPIRATIONS ARE EQUAL AND SYMMETRICAL. NO SIGNS OF RESP DISTRESS. IV FLUIDS INFUSING TO RIGHT AND LAC AC WITH NO SIGNS OF INFILTRATION NOTED. IV TO RIGHT HAND IN PLACE AND SALINE LOCKED. TUBE FEEDINGS INFUSING VIA OGT. PATIENT POSITIONED TO LEFT SIDE AND OFFLOADED WITH PILLOWS AND HOB ELEVATED 45 DEGREES. SCD'S ON TO BLE. F/C IN PLACE AND SECURED DRAINING MINIMAL TEA-COLORED URINE VIA GRAVITY. RIGHT FEMORAL LASHELL CATH IN PLACE/SECURED WITH DRESSING C/D/I. BILATERAL SOFT WRISTS RESTRAINTS IN PLACE TO PREVENT PATIENT FROM PULLING OUT IV LINES/TUBES AND FOR PATIENT SAFETY. BED TO LOWEST POSITION, SIDE RAILS UP X3, CALL LIGHT WITHIN REACH. WILL CONTINUE TO MONITOR.
--- NOTE | 2019-02-08 10:16 | NUR ---
ALICJA RN AND MARTÍN, CHARGE NURSE UPDATED PATIENT'S MOTHER AND SISTER REGARDING C-PAP TRIALS AND SEDATION VACATION. FAMILY IS WORRIED THAT THE PATIENT WILL BECOME REALLY AGITATED ONCE SEDATION IS OFF. PLAN IS TO KEEP PRECEDEX DRIP INFUSING AND SLOWLY TITRATE DIRPRIVAN DRIP OFF IF PATIENT TOLERATES. FAMILY AWARE OF PLAN AND AGREE. DIPRIVAN DRIP TITRATED DOWN TO 30 MCG/KG/MIN. RSS-5. RT REECE MADE AWARE. WILL CONTINUE TO MONITOR.
--- NOTE | 2019-02-08 10:32 | NUR ---
1500 ML OF DELMI URINE DRAINED FROM TALBERT CATH.
--- NOTE | 2019-02-08 10:47 | NUR ---
PATIENT IS STARTING TO WAKE UP SLOWLY. EYES ARE OPEN SPONTANEOUSLY. RSS-2. FAMILY AT BEDSIDE, ENCOURAGING PATIENT TO REMAIN CALM. DIPRIVAN DRIP TITRATED DOWN TO 20 MCG/KG/MIN. WILL CONTINUE TO MONITOR.
--- NOTE | 2019-02-08 10:51 | NUR ---
DR. SANTOS AT BEDSIDE TO ASSESS PATIENT. UPDATES PROVIDED AND POC DISCUSSED. WILL CONTINUE TO MONITOR.
--- NOTE | 2019-02-08 11:05 | NUR ---
DIPRIVAN DRIP TITRATED DOWN TO 10 MCG/KG/MIN. RSS REMAINS 3. FAMILY AT BEDSIDE. PATIENT IS AWAKE, TRACKING WITH EYES. WILL CONTINUE TO MONITOR.
--- NOTE | 2019-02-08 11:11 | NUR ---
SPOKE WITH TAURUS FROM POISION CONTROL AND PROVIDED UPDATES. NO FURTHER ORDERS AT THIS TIME. WILL CONT TO MONITOR.
--- NOTE | 2019-02-08 11:15 | NUR ---
DIPRIVAN DRIP TITRATED OFF. PRECEDEX DRIP REMAINS INFUSING AT 0.6 MCG/KG/HR. RSS-3. FAMILY REMAINS AT BEDSIDE TO KEEP PATIENT CALM. RT REECE MADE AWARE PATIENT IS READY FOR C-PAP TRIALS. WILL CONTINUE TO MONITOR.
--- NOTE | 2019-02-08 11:17 | NUR ---
REECE RT PLACED PATIENT ON C-PAP 08/10. NO SIGNS OF DISTRESS. WILL CONTINUE TO MONITOR.
--- NOTE | 2019-02-08 12:00 | NUR ---
DR. NGUYEN AT BEDSIDE TO ASSESS PATIENT. UPDATES PROVIDED AND POC DISCUSSED. WILL CONTINUE TO MONITOR.
--- NOTE | 2019-02-08 12:25 | NUR ---
PATIENT FEELS HOT TO TOUCH. TEMPORAL TEMP IS 101.3. TYLENLOL GIVEN AND ICE PACKS PROVIDED. FAMILY AT BEDSIDE AND MADE AWARE. WILL CONTINUE TO MONITOR.
--- NOTE | 2019-02-08 13:52 | NUR ---
Follow-up Nutrition Assessment: IC06/A CARA PASTOR FU HR Dx: Ammonia. [place] toxicity PMHx: ADHD, Anxiety, bipolar, autism Labs: (01/09) BG 334H, BUN 21H, A1C 8.0H, WBC 12.8H Meds: Ativan, D 10%, Diprivan, humulin, Lasix, zofran Diet: Glucerna 1.2 @ 10ml/hr, goal 55ml/hr, advance 10cc Q4H, FWF 50cc Q6H (TF turned off) PO Intake: Weights: (02/05) 120 KG, (02/06) 123.9 KG, (02/07) 124 KG Skin: Open blister to L hand, optifoam to sacral area Oscar: 13 I/Os: 1874/999 Edema: +1 BLE GI: Last BM RDN Visit (01/09): Pt room was closed and other healthcare professionals and family seemed to be at beside. Per MARÍA Arvizu, pt is intubated and sedated with possible extubation today. Tube feedings have been turned off since 8:00 am this morning in anticipation of extubation. Paged Dr. Jewell to get information regarding his plan. said to coordinate with the RN. Called MARÍA Sauceda, she said that they have not yet extubated the pt. Estimated Nutritional Needs based on actual body weight 120 kg Energy: 5540-4281 vs 2431 kcal/day (25-30 kcal//kg using IBW: 81 kg vs. PSU 2003b for vent) Protein: 81-97g/d (1-1.2 g/kg/IBW for maintenance) Fluid: 5305-6214 ml/d (1 ml/kcal) or per MD Nutrition Diagnosis 1. Inadequate enteral nutrition infusion related to plan for extubation as evidenced by TF turned off since 8:00 am this morning. Intervention 1. Resume TF Glucerna 1.2 @ 55ml/hr if extubation is to be delayed. 2. If extubation is completed, recommend CCHO diet (texture to be determined by SPOT WELDER LINE eval) Monitor/Evaluate Goal: Have pt meet at least 75% of estimated needs Monitor: PO intake, Labs, GI function F/U in 2-3 days as high risk 02/10-8
--- NOTE | 2019-02-08 13:53 | NUR ---
1. Resume TF Glucerna 1.2 @ 55ml/hr if extubation is to be delayed. 2. If extubation is completed, recommend CCHO diet (texture to be determined by COMPUTING CONSULTANT eval)
--- NOTE | 2019-02-08 14:00 | NUR ---
REECE RT ON PHONE WITH DR. SANTOS. WEANING PARAMETERS GIVEN. PER DR. SANTOS CHANGE SETTINGS FROM 08/10 TO 06/10. IF PT IS ABLE TO OBTAIN >500 VITAL CAPACITY THEN EXTUBATE AND ADD OXYGEN
--- NOTE | 2019-02-08 14:42 | NUR ---
ATTEMPTED VC ON 06/10, PT VC IS 550. TELPEHONE ORDER WAS TO EXTUBATED GREATER THAN [address] SANTOS AND PLACED ON MASKED OXYGEN POST EXTUBATION. WILL PLACED PT ON COOL MIST, WILL CONTINUE TO MONITOR.
--- NOTE | 2019-02-08 15:07 | NUR ---
PATIENT EXTUBATED AT 1500 BY RT REECE. PATIENT PLACED ON COOL AEROSOL MASK FI02 40%, 10 LPM. OGT ALSO REMOVED DURING EXTUBATION. FAMILY REMAINED AT PATIENT'S BEDSIDE TO KEEP HIM CALM. PRECEDEX INFUSING AT 0.6 MCG/KG/HR. RSS-2. WILL CONTINUE TO MONITOR.
--- NOTE | 2019-02-08 16:52 | NUR ---
RIGHT FEMORAL LASHELL CATH DC'D BY MARÍA BURKS. CATH TIP INTACT. PATIENT TOLERATED WELL. WILL CONTINUE TO MONITOR.
--- NOTE | 2019-02-08 19:20 | NUR ---
RECEIVED PT SEDATED ON PRECEDEX GTT @ 0.6 MCG/KG/HR. RSS=2. PT AWAKE/ALERT EYES OPEN TO STIMULI, ABLE TO TRACK BUT UNABLE TO FOLLOW SIMPLE COMMANDS OR MAKE NEEDS KNOWN. PUIPLS 4MM BRISK RESPONSE TO LIGHT B/L, PERRLA. NO FACIAL DROOP NOTED.TRACHEA MIDLINE, NO DRAINAGE TO EENT.LUNG SOUNDS CONGESTED BILATERALLY, CHEST RISE/FALL SYMMETRIC. PT TACHYPNEIC RR=29. NO ACUTE RESP DISTRESS. PT ON COOL AEROSOL MASK @ 10 L.S1/S2 SOUNDS HEARD, CHEST WALL STABLE, NO S/S OF CHEST PAIN. ON FULL HELMET BINDER.SKIN COLOR CONSISTENT WITH ETHNICITY, CAP REFILL <3 SEC X4 EXTREMITIES, PULSES MODERATE X4. +1 EDEMA NOTED TO BUE, TRACE EDEMA NOTED TO BLE. NS INFUSING @ 150 ML/HR. SCD'S INTACT.GEN WEAKNESS. NO CONTRACTURES/DEFORMITIES, PT ON TURN/SCHEDULE Q2H. NO JOINT SWELLING/TENDERNESS. NO RESTRAINTS ON BUT WILL REASSESS NEED.PT NPO AT THIS TIME. NO S/S OF N/V.ACTIVE BOWEL SOUNDS X4 QUADRANTS, ABD SOFT/ROUND. NO BM NOTED.F/C DRAINING TO GRAVITY, DELMI URINE. NO PENILE EDEMA/DISCHARGE NOTED.IV TO RAC, LH, RH, PORTS PATENT, NO S/S OF INFILTRATION, DRESSING CDI. BLISTER TO LEFT HAND, NYA. SKIN WARM/DRY TO TOUCH. BED AT LOWEST SETTING, CALL LIGHT WITHIN REACH, HOB ELEVATED 30 DEGREES. WILL CONT TO MONITOR.
--- NOTE | 2019-02-08 20:05 | NUR ---
PT UNABLE TO PASS SWALLOW SCREEN AT THIS TIME WITH APPLE SAUCE. PT UNABLE TO VERBALIZE OR GESTURE UNDERSTANDING OF SWALLOWING. FOOD STICKING IN MOUTH AT THIS TIME. REMOVED FOOD CONTENTS FROM MOUTH FOR ASPIRATION PRECUATION.
--- NOTE | 2019-02-08 20:10 | NUR ---
SPOKE WITH DR. JOHNSON ON PT'S STATUS AND RECENT EXTUBATION. PER DR. JOHNSON PLACE PT NPO EXCEPT MEDS, ORDER SWALLOW EVAL IF PT DOES NOT PASS SWALLOW SCREEN, ORDER PT EVAL, AND ORDER MUCOMYST 10% PRN. TELEPHONE ORDER READ BACK AT THIS TIME.
--- NOTE | 2019-02-08 20:29 | NUR ---
PT AGITATED, CONSTANTLY REMOVING AEROSOL MASK AND ATTEMPTING TO REMOVE IV/GOWN. EDUCATED PT ON NEED FOR EQUIPMENT AND MEDICAL EQUIPMENT. PT DOES UNABLE TO VERBALIZE UNDERSTANDING. ADMINISTERING ATIVAN PER EMAR.
--- NOTE | 2019-02-09 02:15 | NUR ---
PT AGITATED HITTING ARM AND LEGS AGAINST SIDE RAILS. PT UNABLE TO VERBALIZE OR MAKE NEEDS KNOWN WHEN ASKED WHY. PT EYES ARE OPEN TRACKS, BUT DOES NOT VERBALIZE ANY NEEDS. ADMINISTERING ATIVAN PER EMAR.
[2019-02-09 03:11] VITALS: BP 126/64
--- NOTE | 2019-02-09 04:55 | NUR ---
PT CLEANED AT THIS TIME, TALBERT CARE PROVIDED, CHUCKS, GOWN AND LINEN CHANGED. FOUND BLISTER TO LEFT HAND LATERAL ASPECT NEAR PINKY FIGER, NYA AND INTACT. FOUND BLISTER TO LEFT FOOT PLANTAR SIDE, NYA, INTACT. PICTURES PLACED IN CHART.
[2019-02-09 05:56] LABS: CALCIUM 8.8 mg/dL (8.5-10.1); CARBON DIOXIDE 22.8 mmol/L (21-32); CHLORIDE SERUM 116 mmol/L (98-107); CREATININE SERUM 0.9 mg/dL (0.7-1.3); GFR1 > 60 mL/min; GLUCOSE SERUM 263 mg/dL (74-106); MAGNESIUM 1.7 mg/dL (1.8-2.4); SODIUM SERUM 149 mmol/L (136-145)
[2019-02-09 05:58] LABS: BASOPHIL % 0.5 % (0-2); PLATELET COUNT 329 x10^3mcL (130-400)
[2019-02-09 06:05] LABS: RED CELL DISTRIBUTION WIDTH 16.2 % (11.5-14.5)
--- NOTE | 2019-02-09 06:19 | NUR ---
SPOKE WITH DR. JOHNSON ON PT'S MAGNESIUM OF 1.[address] JOHNSON TELEPHONE ORDER READ BACK, ORDER 2 GM IV MAGNESIUM.
--- NOTE | 2019-02-09 07:10 | NUR ---
GAVE REPORT TO MARÍA HELM. UPDATES GIVEN, QUESTIONS ANSWERED. ENDORSED CARE.
--- NOTE | 2019-02-09 07:11 | NUR ---
XRAY TECHS AT BEDSIDE FOR CHEST XRAY
[2019-02-09 07:53] VITALS: BP 110/72
[2019-02-09 08:42] VITALS: Ht 182.9 cm; Wt 120.0 kg
--- NOTE | 2019-02-09 08:45 | NUR ---
PATIENT ATTEMPTING TO GET OUT OF BED AND YELLING OUT LOUD. PATIENT RE-ORIENTED, BUT UNABLE TO SPEAK. ATIVAN 2 MG IVP GIVEN (SEE EMAR). WILL CONTINUE TO MONITOR.
[2019-02-09 11:02] VITALS: BP 137/78
--- NOTE | 2019-02-09 13:37 | NUR ---
SPOKE WITH BASIL FROM PHYSICAL THERAPY DEPT TO FOLLOW UP ON SWALLOW EVAL. PER BASIL THE SPEECH THERAPIST IS CURRENTLY IN [place] AND IS NOT SURE HE WILL BE ABLE TO MAKE IT AND WILL LIKE TO COME TOMORROW. INFORMED BASIL THAT THE SWALLOW EVAL MUST BE DONE TODAY PT'S PO PSYCH MEDS ARE PENDING ON SWALLOW EVAL. PER BASIL HE WILL COMMUNICATE WITH THE SPEECH THERAPIST THAT IT MUST BE DONE TODAY. PRIMARY RN AWARE OF THE ABOVE.
--- NOTE | 2019-02-09 14:33 | NUR ---
PATIENT HAD A BM X1 SOFT/MUSHY BROWN STOOL. PATIENT CLEANED UP AND REPOSITIONED TO SUPINE WITH HOB ELEVATED AND PILLOWS IN PLACE TO ALLEVIATE PRESSURE POINTS. PATIENT TOLERATED WELL. PATIENT SAID "GLASSES". FIRST WORD SPOKEN SINCE BEING EXTUBATED YESTURDAY. FAMILY AT BEDSIDE. WILL CONTINUE TO MONITOR.
[2019-02-09 15:30] VITALS: BP 134/86
--- NOTE | 2019-02-09 17:59 | NUR ---
PT WAS SEEN FOR DYSPHAGIA. PT HAD SEVERE POCKETING FOR PUREE DIET INDICATING SEVERE ORAL PHARYNGEAL DYSPHAGIA. RECOMMENDATION ALTERNATE MODE OF FEEDING REEVALUATION NPO.
--- NOTE | 2019-02-09 18:02 | NUR ---
SPEECH THERAPIST AGREES TO MONITOR PATIENT TAKING HIS PYSCH MEDICATIONS SCHEDULED FROM [facility] WHICH INCLUDE THE LITHIUM AND WELLBUTRIN. PATIENT HAD A HARD TIME SWALLOWING HIS MEDICATION. APPROX 25% OF THE MEDICATION WAS SWALLOWED. ACCORDING TO THE SPEECH THERAPIST, HE RECOMMENDS NOT FEEDING THE PATIENT AT THIS TIME AND WILL RE-EVALUATE TOMORROW. PLAN IS TO TITRATE THE PRECEDEX OFF IF PATIENT TOLERATES AND MAY GIVE ATIVAN PRN IF PATIENT BECOME TOO AGITATED OR RESTLESS. FAMILY DOES NOT WANT AN NGT AT THIS TIME. WILL CONTINUE TO MONITOR.
[2019-02-09 19:20] VITALS: BP 135/84
--- NOTE | 2019-02-09 19:20 | NUR ---
RECEIVED PT AWAKE/ALERT AT THIS TIME, FOLLOWS SIMPLE COMMANDS BY SQUEEZING HANDS. PT SELECTIVE WITH ONE WORD ANSWERS, ORIENTED TO PLACE WHEN ASKED. HX OF AUTISM. PT ON PRECEDEX @ 0.4 MCG/KG/HR, RSS=2. PUPILS 4MM BRISK RESPONSE TO LIGHT B/L, PERRLA, TRACKS.TRACHEA MIDLINE, NO DRAINAGE TO EENT.LUNG SOUNDS CTA BUL, DIMINISHED BASES. CHEST RISE/FALL SYMMETRIC, E/U BREATHING, NO ACUTE RESP DISTRESS. 3L NC INTACT.S1/S2 SOUNDS HEARD, CHEST WALL STABLE, NO S/S OF CHEST PAIN.SKIN COLOR CONSISTENT WITH ETHNICITY, CAP REFILL <3 SEC X4 EXTREMITIES, PULSES MODERATE X4 EXTREMITIES. EDEMA +1 TO LUE, NONPITTING TO RUE, TRACE TO BLE. SCD'S INTACT. D5 1/2 NS INFUSING @ 100 ML/HR.GEN WEAKNESS. NO CONTRACTURES/DEFORMITIES, PT ON TURN/SCHEDULE Q2H. NO JOINT SWELLING/TENDERNESS.PT NPO AT THIS TIME. NO S/S OF N/V. SWALLOW EVAL PENDING.ACTIVE BOWEL SOUNDS X4 QUADRANTS, ABD SOFT/ROUND. NO BM NOTED.F/C DRAINING TO GRAVITY, DELMI URINE. NO PENILE EDEMA/DISCHARGE NOTED.IV TO RAC, LH, PORTS PATENT, NO S/S OF INFILTRATION, DRESSING CDI. BLISTERS TO LEFT HAND, SENIOR SUPPORT ENGINEER. LEFT FOOT BLISTER PLANTAR SIDE, NYA, INTACT. SKIN WARM TO TOUCH. BED AT LOWEST SETTING, CALL LIGHT WITHIN REACH, HOB ELEVATED 45 DEGREES PER PT COMFORT.
--- NOTE | 2019-02-09 21:51 | NUR ---
PATIENT ATTEMPTING TO GET OUT OF BED AND MOANING. APPEARS RESTLESSSS/AGITATED. ATTMPETED TO CONSOLE PATIENT ON HOSPITAL STAY AND REORIENTATION. PT UNABLE TO VERBALIZE NEEDS AT THIS TIME. ATIVAN 2 MG IVP GIVEN (PER EMAR). WILL CONTINUE TO MONITOR. FAMILY AT BEDSIDE.
[2019-02-09 23:32] VITALS: BP 135/84
--- NOTE | 2019-02-10 00:08 | NUR ---
PT ATTEMPTING TO GET OUT OF BED AND SLIDING DOWN NEAR BOTTOM OF BED, APPEARS RESTLESS/AGITATED, RR=30'S. PT UNABLE TO VERBALIZE NEEDS AT THIS TIME. ATIVAN 2 MG IVP GIVEN (PER EMAR). WILL CONTINUE TO MONITOR. FAMILY AT BEDSIDE.
--- NOTE | 2019-02-10 03:20 | NUR ---
PRECEDEX GTT TITRATED TO 0.3 MCG/KG/HR AT THIS TIME. PT SLEEPING AT THIS TIME, EASILY AROUSABLE TO TACTILE STIMULI. E/U BREATHING CHEST RISE/FALL SYMMETRIC, NO ACUTE RESP DISTRESS NOTED.
[2019-02-10 03:27] VITALS: BP 113/68
--- NOTE | 2019-02-10 04:00 | NUR ---
PRECEDEX GTT TITRATED TO 0.2 MCG/KG/HR AT THIS TIME. PT SLEEPING AT THIS TIME, EASILY AROUSABLE TO TACTILE STIMULI. E/U BREATHING CHEST RISE/FALL SYMMETRIC, NO ACUTE RESP DISTRESS NOTED.
--- NOTE | 2019-02-10 04:30 | NUR ---
PRECEDEX GTT TITRATED TO OFF AT THIS TIME. PT SLEEPING BUT EASILY AROUSABLE TO TACTILE STIMULI. E/U BREATHING CHEST RISE/FALL SYMMETRIC, NO ACUTE RESP DISTRESS NOTED.
--- NOTE | 2019-02-10 05:27 | NUR ---
SALES AGENT MELISSA AT BEDSIDE FOR LAB DRAW.
[2019-02-10 05:59] LABS: BASOPHIL % 0.6 % (0-2); PLATELET COUNT 381 x10^3mcL (130-400)
[2019-02-10 06:00] LABS: RED CELL DISTRIBUTION WIDTH 16.3 % (11.5-14.5)
[2019-02-10 06:10] LABS: CALCIUM 9.2 mg/dL (8.5-10.1); CARBON DIOXIDE 25.7 mmol/L (21-32); CHLORIDE SERUM 119 mmol/L (98-107); GFR1 > 60 mL/min; MAGNESIUM 2.3 mg/dL (1.8-2.4); POTASSIUM SERUM 3.9 mmol/L (3.5-5.1); SODIUM SERUM 153 mmol/L (136-145)
[2019-02-10 06:17] LABS: GLUCOSE SERUM 340 mg/dL (74-106)
--- NOTE | 2019-02-10 07:20 | NUR ---
GAVE REPORT TO MARÍA NICOLAS AND MARÍA CASTRO. UPDATES PROVIDED, QUESTIONS ANSWERED. ENDORSED CARE.
[2019-02-10 07:45] VITALS: BP 132/79
--- NOTE | 2019-02-10 07:45 | NUR ---
PATIENT LETHARGIC; ORIENTED TO PERSON ONLY AT THIS TIME WITH SLOW SPEECH AND SLURRED SPEECH. PATIENT DENIES PAIN, SHORTNESS OF BREATH OR NAUSEA/VOMITING. PATIENT HAS EPISODES OF FAST BREATHING. TELE # 6 READS SINUS TACHYCARDIA. IV SITES TO RAC AND LEFT HAND. IVF D51/2 AT 150CC/HR. TALBERT CATH TO GRAVITY DRAINING DELMI URINE. CALL LIGHT WITHIN REACH. SIDE RAILS UP X3. BED IS AT LOWEST POSITION. THE FAMILY IS AT BEDSIDE.
--- NOTE | 2019-02-10 09:30 | NUR ---
DR. NGUYEN IS AT BEDSIDE SEEING THE PATIENT AND UPDATING THE PARENTS OF THE PATIENT'S STATUS. PARENT'S CONCERNS ADDRESSED BY .
--- NOTE | 2019-02-10 10:05 | NUR ---
BEDSIDE SWALLOW SCREEN WAS IMPLEMENTED TO THE PATIENT BY THE CHARGE NURSE. THE PATIENT IS ABLE TO SWALLOW ICE CHIPS, APPLE SAUCE, PUDDING, WATER AND APPLE JUICE WITH NO S/S OF CHOKING.
--- NOTE | 2019-02-10 11:44 | NUR ---
DR SATNOS IN TO SEE AND ASSESS PATIENT.
[2019-02-10 11:48] VITALS: BP 129/78
[2019-02-10] MEDS ORDERED: LIT300 PO (12:19)
--- NOTE | 2019-02-10 13:29 | NUR ---
DANIEL FROM POISON CONTROL CALLS ASKING FOR UPDATE; UPDATE PROVIDED TO DANIEL.
--- NOTE | 2019-02-10 13:45 | NUR ---
Follow-up Nutrition Assessment: IC06/A CARA PASTOR HR Dx: Ammonia. [place] toxicity PMHx: ADHD, Anxiety, bipolar, autism Labs: (02/10) BG 340H, A1C 8.0H, WBC 11.5H, NA 153H Meds: Ativan, D 10%, humulin, Lasix, Zofran, Abilify Diet: Puree diet PO Intake: 0% Weights: (02/05) 120 KG, (02/06) 123.9 KG, (02/07) 124 KG, (02/10) 120 kg Skin: Open blister to L hand, optifoam to sacral area, ecchymosis to BUE Oscar: 14 I/Os: 3831/8100 (-4220) Edema: +1 BLE, +1 BUE GI: Last BM RDN Visit (02/10): Family member were feeding jello to the patient. Per RN Opal, pt was cleared for puree diet earlier today. Estimated Nutritional Needs based on actual body weight 120 kg Energy: 2376-6625 vs 2431 kcal/day (25-30 kcal//kg using IBW: 81 kg vs. PSU 2003b for vent) Protein: 81-97g/d (1-1.2 g/kg/IBW for maintenance) Fluid: 2367-5269 ml/d (1 ml/kcal) or per MD Nutrition Diagnosis 1. Impaired nutrient utilization related to endocrine dysfunction as evidenced by BG 340H, A1C 8.0H Intervention 1. Recommend CCHO puree diet. Monitor/Evaluate Goal: Have pt meet at least 75% of estimated needs Monitor: PO intake, Labs, GI function F/U in 2-3 days as high risk 02/12-
--- NOTE | 2019-02-10 13:45 | NUR ---
1. Recommend CCHO puree diet.
--- NOTE | 2019-02-10 14:55 | NUR ---
REPORT GIVEN TO RELA DANIEL. PATIENT TO BE TRANSFERRED TO ROOM 237-B. ALL QUESTIONS AND CONCERNS ADDRESSED ALL CARES ENDORSED. INSTRUCTED MARÍA NOBLE TO CALL ICU IF ANY QUESTIONS ARISE.
--- NOTE | 2019-02-10 15:45 | NUR ---
THE PATIENT WAS TRANSFERRED TO ROOM 237B ON [facility]ST UNIT; THE PARENTS ACCOMPANIED THE PATIENT. ALL BELONGINGS INCLUDING PATIENT'S GLASSES TRANSFERRED TO THE ROOM WITH THE PATIENT. SELMA EDUARDO RN IS AT BEDSIDE WITH THE PATIENT.
[2019-02-10 15:55] VITALS: BP 122/77
--- NOTE | 2019-02-10 15:55 | NUR ---
RECEIVED PT FROM ICU BY BED. PT AWAKE, ALERT A/OX1. PT ON 3LNC WITH NO RESP DISTRESS NOTED AT THIS TIME. IV ACCESS LEFT HAND/RAC C/D/I INFUSING D5W AT 50ML/HR. PT ON TELE #3 WITH SINUS TACHYCARDIA. DENIES CHEST PAIN AT THIS TIME. PERIPHERAL PULSES PALPABLE. 1+ EDEMA NOTED TO BUE. PT NOTED TO HAVE BLISTER TO LEFT FOOT PLANTAR ADN LEFT HAND TWO BLISTERS TO PALM AREA AND KNUCKLE AREA. PT WITH TALBERT CATHETER WITH DELMI URINE NOTED. SCD'S IN PLACE. FAMILY AT BEDSIDE. PT CALM AND COOPERATIVE AT THIS TIME. PER FAMILY, PT REMAINS CALM WITH FAMILY SUPPORT OTHERWISE "CHAOS WILL ENSUE" IF PATIENT GETS ANXIOUS. SAFETY MEASURES IN PLACE, BED ALARM ON. CALL LIGHT WITHIN REACH.
--- NOTE | 2019-02-10 17:44 | NUR ---
PT WITH TEMP 100.1 TYLENOL ADMINSTERED ORDERED PRN (SEE EMAR) PT NOTED TO HAVE DELAYED SWALLOWING. SOME SUCTION NEEDED. FAMILY AT BEDSIDE FEEDING PT DINNER. PT BLOOD SUGAR 335 12 UNITS REG INSULIN GIVEN ORDERED. NO ACUTE DISTRESS OR DISCOMFORT NOTED AT THIS TIME.
--- NOTE | 2019-02-10 18:19 | NUR ---
PT STILL HAS TEMP AFTER TYLENOL ADMINISTRATION 100.7 . NEW SKIN ALTERATION NOTED TO BILATERAL BUTTOCKS. REDNESS WITH BLACK SPOTS SCATTERED. PHOTOS DOCUMENTED. FAMILY AT BEDSIDE.
--- NOTE | 2019-02-10 18:46 | NUR ---
PT STABLE AT THIS TIME. ALL NEEDS MET THROUGHOUT SHIFT. FAMILY AT BEDSIDE HELPING WITH CARE. NO ACUTE DISTRESS OR DISCOMFORT NOTED. WILL CONTINUE TO MONITOR AND ENDORSE CARE TO SOUND TECHNICIAN SUPERVISOR.
--- NOTE | 2019-02-10 20:00 | NUR ---
PT A/A/O X2, FAMILY AT BEDSIDE. PT DENIES DIZZINESS AND HEADACHE. BREATH SOUNDS CLEAR. BREATHING EVEN AND UNLABORED ON 2L NC, SPO2 96%. DENIES CHEST PAIN AND PRESSURE. TEMP 100.5. COOLING MEASURES IMPLEMENTED. PT TOLERATING IT WELL. BOWEL SOUNDS ACTIVE. NO C/O N/V AND ABD PAIN. SCATTERED BLISTERS NOTED ON LEFT HAND NYA. BLISTER NOTED ON THE LEFT FOOT. ERYTHRMA WITH SCATTERED HAYES AREA NOTED ON BUTTOCKS ADOBE MAKER. IV INTACT ON THE LEFT HAND INFUSING ORDERED. TALBERT CATH IN PLACE AND DRAINING TO GRAVITY WITH DELMI URINE. MADE PT COMFORTABLE. PLACED CALL LIGHT WITH IN REACH. WILL CONTINUE TO MONITOR.
[2019-02-10 21:39] VITALS: BP 137/72
--- NOTE | 2019-02-10 22:01 | NUR ---
PATIENTS TEMP 97.5. WILL CONTINUE TO MONITOR.
--- NOTE | 2019-02-11 00:54 | NUR ---
PT RESTLESS AND AGGITATED. SISTER AT BEDSIDE. GAVE PT ATIVAN IVP. PT TOLERATED IT WELL. WILL CONTINUE TO MONITOR.
--- NOTE | 2019-02-11 06:04 | NUR ---
PT TRANSFFERED TO AN AIR MATTRESS. PT TOLERATED IT WELL. PATIENTS SISTER AT BEDSIDE. TALBERT CATH IN PLACE. IV INTACT AND INFUSING ORDERED. MADE PT COMFORTABLE. WILL ENDORSE TO THE AM NURSE ACCORDINGLY.
[2019-02-11 06:12] VITALS: BP 106/70
[2019-02-11 06:55] LABS: BASOPHIL % 0.5 % (0-2); PLATELET COUNT 418 x10^3mcL (130-400); RED CELL DISTRIBUTION WIDTH 15.9 % (11.5-14.5)
[2019-02-11 07:01] LABS: CARBON DIOXIDE 27.9 mmol/L (21-32); CHLORIDE SERUM 117 mmol/L (98-107); CREATININE SERUM 0.9 mg/dL (0.7-1.3); GFR1 > 60 mL/min; GLUCOSE SERUM 322 mg/dL (74-106); MAGNESIUM 2.2 mg/dL (1.8-2.4); POTASSIUM SERUM 3.5 mmol/L (3.5-5.1); SODIUM SERUM 153 mmol/L (136-145)
[2019-02-11 08:49] VITALS: BP 106/70
--- NOTE | 2019-02-11 09:25 | NUR ---
APPLIED NEW OPTIFOAM DRESSING ON BUTTOCKS.
[2019-02-11 09:30] VITALS: BP 124/78
--- NOTE | 2019-02-11 10:05 | NUR ---
IV PULLED OUT BY PT. REINSERTED NEW IV TO LFA 20G. IV INTACT AND PATENT.
--- NOTE | 2019-02-11 11:45 | NUR ---
IV ACCIDENTLY REMOVED. REINSERTED NEW IV ON RFA 20G. IV INTACT AND PATENT. WILL CONTINUE TO MONITOR.
[2019-02-11 12:35] VITALS: BP 125/81
--- NOTE | 2019-02-11 13:07 | NUR ---
PT ASLEEP BUT AROUSABLE. NO ACUTE DISTRESS NOTED. FAMILY MEMBER AT BEDSIDE. CALL LIGHT WITHIN REACH. WILL CONTINUE TO MONITOR.
--- NOTE | 2019-02-11 15:05 | NUR ---
APPLIED NEW OPTIFOAM TO BUTTOCKS.
--- NOTE | 2019-02-11 16:36 | NUR ---
PT ASLEEP BUT IN BED BUT AROUSABLE. FAMILY MEMBERS AT BEDSIDE. CALL LIGHT WITHIN REACH. WILL CONTINUE TO MONITOR.
[2019-02-11 18:01] VITALS: BP 116/69
--- NOTE | 2019-02-11 18:25 | NUR ---
PT RESTING IN BED. APPEARS IN NO ACUTE DISTRESS. IV INTACT AND PATENT. FAMILY MEMBERS AT BEDSIDE. TALBERT CATH IN PLACE DRAINING DELMI URINE. FALL PRECAUTIONS IN PLACE. BED IN LOW POSITION. CALL LIGHT WITHIN REACH. WILL BE ENDORSED.
--- NOTE | 2019-02-11 19:30 | NUR ---
RECEIVED PT IN BED RESTING WITH FAMILY AT BEDSIDE.NO ACUTE RESPIRATORY DISTRESS NOTED.DENIES ANY PAIN AT THIS TIME.IV SITE PATENT AND INTACT.BLISTER TO LEFT FT. OPEN BLISTER TO LEFT HAND,[place]. OPTIFOAM TO BUTTOCKS AREA.AIRMATTRESS IN PLACED.TURN Q2HR.F/C IN PLACED DRAINING TO GRAVITY. BED IN LOWEST POSITION. SIDERAIL UP. CALL LIGHT WITHIN REACH. WILL CONTINUE TO MONITOR.
[2019-02-11 21:00] VITALS: BP 125/73
--- NOTE | 2019-02-11 21:52 | NUR ---
PT C/O INSOMIA.MEDICATED RESTORIL PO ORDERED. WILL CONTINUE TO MONITOR.
[2019-02-12 04:49] VITALS: BP 126/73
--- NOTE | 2019-02-12 05:20 | NUR ---
PT APPEARS TO BE SLEEPING. NO ACUTE RESPIRATORY DISTRESS NOTED. NO INDICATION OF PAIN. BED IN LOWEST POSITION,CALL LIGHT WITHIN REACH. WILL CONTINUE TO MONITOR.
--- NOTE | 2019-02-12 06:40 | NUR ---
CLEANED PT.BED SHEET CHANGED. F/C CARE DONE.WILL CONTINUE TO MONITOR.
--- NOTE | 2019-02-12 07:19 | NUR ---
CARE ENDORSED TO DAY NURSE
[2019-02-12 07:23] LABS: CARBON DIOXIDE 24.4 mmol/L (21-32); CHLORIDE SERUM 112 mmol/L (98-107); CREATININE SERUM 0.8 mg/dL (0.7-1.3); GFR1 > 60 mL/min; GLUCOSE SERUM 280 mg/dL (74-106); PHOSPHOROUS 3.3 mg/dL (2.5-4.9); POTASSIUM SERUM 3.2 mmol/L (3.5-5.1); SODIUM SERUM 146 mmol/L (136-145)
--- NOTE | 2019-02-12 07:26 | NUR ---
RECEIVED PT FROM SHIFT NURSE A/0X2 LYING IN BED. NO ACUTE DISTRESS NOTED. RESP EVEN AND UNLABORED ON 2L NC. IV INTACT AND PATENT. TALBERT CATH IN PLACE DRAINING DELMI URINE. FALL PRECAUTIONS IN PLACE. BED IN LOW POSITOIN. CALL LIGHT WITHIN REACH. WILL CONTINUE TO MONITOR.
[2019-02-12 09:12] VITALS: BP 130/86
--- NOTE | 2019-02-12 10:47 | NUR ---
PT ASLEEP BUT AROUSABLE. RESP EVEN AND UNLABORED ON 2L NC. FAMILY MEMBERS AT BEDSIDE. CALL LIGHT WITHIN REACH. WILL CONTINUE TO MONITOR.
--- NOTE | 2019-02-12 12:45 | NUR ---
PT LYING IN BED TALKING WITH FAMILY MEMBERS. NO ACUTE DISTRESS NOTED. CALL LIGHT WITHIN REACH. WILL CONTINUE TO MONITOR.
[2019-02-12 13:27] VITALS: BP 130/84
--- NOTE | 2019-02-12 13:33 | NUR ---
APPLIED NEW OPTIFOAM DRESSING TO BUTTOCKS.
--- NOTE | 2019-02-12 16:08 | NUR ---
PT ASLEEP BUT AROUSABLE. FAMILY MEMBERS AT BED SIDE. CALL LIGHT WITHIN REACH. WILL CONTINUE TO MONITOR.
[2019-02-12 17:18] VITALS: BP 121/74
--- NOTE | 2019-02-12 17:45 | NUR ---
EXPLAINED PURPOSE OF BLADDER TRAINING TO PT AND FAMILY MEMBERS. STARTED BLADDER TRAINING.
--- NOTE | 2019-02-12 18:15 | NUR ---
PT RESTING IN BED TALKING WITH FAMILY MEMBERS. NO ACUTE DISTRESS NOTED. RESP EVEN AND UNLABORED ON 3L NC. 02 SAT 95% IV INTACT AND PATENT. BED IN LOW POSITION. CALL LIGHT WITHIN REACH. WILL BE ENDORSED.
--- NOTE | 2019-02-12 20:00 | NUR ---
PT A/A/O X3, ABLE TO MAKE NEEDS KNOWN. FAMILY AT BEDSIDE. PT DENIES DIZZINESS AND HEADACHE. BREATH SOUNDS CLEAR. BREATHING EVEN AND UNLABORED ON 2L NC. DENIES CHEST PAIN AND PRESSURE. BOWEL SOUNDS ACTIVE. NO C/O N/V AND ABD PAIN. BLISTERS NOTED ON THE LEFT HAND WITH DRESSING INTACT. BLISTER NOTED ON PAD OF LEFT FOOT TEST FIXTURE DESIGNER. ERYTHEMA NOTED WITH SCATTERED DARK PURPLE DISCOLORATION NOTED ON BUTTOCKS TEST FIXTURE DESIGNER. TALBERT CATH IN PLACE WITH YELLOW URINE CLAMPED FOR BLADDER TRAINING. IV INTACT ON THE RIGHT FOREARM INFUSING WITH D5 WATER AT 50 ML/HR. MADE PT COMFORTABLE. PLACED CALL LIGHT WITH IN REACH. ON AIR MATTRESS. WILL CONTINUE TO MONITOR.
[2019-02-12 21:29] VITALS: BP 127/76
--- NOTE | 2019-02-12 22:13 | NUR ---
PT TALBERT CATH UNCLAMPED. PT TOLERATED IT WELL. DRESSING ON THE LEFT HAND REMOVED. PT TOLERATED IT WELL. WILL CONTINUE TO MONITOR.
--- NOTE | 2019-02-13 00:45 | NUR ---
PT TALBERT CLAMPED. PT TOLERATED IT WELL. PT RESTING WITH EYES CLOSED. BROTHER AT BEDSIDE. WILL CONTINUE TO MONITOR.
--- NOTE | 2019-02-13 02:48 | NUR ---
PT TALBERT CATH UNCLAMPED. PT TOLERATED IT WELL. WILL CONTINUE TO MONITOR.
--- NOTE | 2019-02-13 05:51 | NUR ---
PT QUIET AND RESTING. BROTHER AT BEDSIDE. PT WITH NO C/O DISCOMFORT THUS FAR. TALBERT CATH TAKEN OF. PT TOLERATED IT WELL. IV INTACT AND INFUSING ORDERED. MADE PT COMFORTABLE. WILL ENDORSE TO THE AM NURSE ACCORDINGLY.
[2019-02-13 06:10] VITALS: BP 116/71
[2019-02-13 06:47] LABS: BASOPHIL % 0.4 % (0-2); PLATELET COUNT 427 x10^3mcL (130-400); RED CELL DISTRIBUTION WIDTH 14.9 % (11.5-14.5)
[2019-02-13 07:29] LABS: ALKALINE PHOSPHATASE 306 U/L (46-116); ALT/SGPT 74 U/L (16-63); AST/SGOT 53 U/L (15-37); BILIRUBIN DIRECT 0.22 mg/dL (0.0-0.2); BILIRUBIN TOTAL 0.42 mg/dL (0.20-1.00); CALCIUM 9.1 mg/dL (8.5-10.1); CARBON DIOXIDE 24.9 mmol/L (21-32); CHLORIDE SERUM 107 mmol/L (98-107); CREATININE SERUM 0.8 mg/dL (0.7-1.3); GFR1 > 60 mL/min; GLUCOSE SERUM 317 mg/dL (74-106); SODIUM SERUM 144 mmol/L (136-145)
[2019-02-13 07:31] LABS: ALBUMIN 2.5 g/dL (3.4-5.0)
--- NOTE | 2019-02-13 07:35 | NUR ---
RECEIVED PT IN NO ACUTE DISTRESS. RESTING IN BED WITH HOB ELEVATED, EATING BREAKFAST. ASSISTED BY PT'S BROTHER. AAOX3. RESP EVEN AND UNLABORED ON RA. ON AIR MATTRESS, PT ABLE TO REPOSITION SELF. WOUNDS TO LEFT HAND, NYA. BLISTER TO LEFT PLANTAR FOOT, NYA. SCATTERED ECCHYMOSIS BUE, NYA. MULTIPLE NON-BLANCHABLE ERYTHEMA AND SCABS TO BUTTOCKS, MASONRY INSPECTOR. IV TO RFA, NO REDNESS OR SWELLING. FALL PRECAUTIONS. BED IN LOW POSITION, CALL LIGHT WITHIN REACH. WILL CONTINUE TO MONITOR.
[2019-02-13 07:37] LABS: POTASSIUM SERUM 2.9 mmol/L (3.5-5.1)
--- NOTE | 2019-02-13 08:11 | NUR ---
SPOKE WITH DR. JOHNSON OVER THE PHONE REGARDING PT'S WBC 13.3 AND POTASSIUM 2.9. NO NEW ORDERS AT THIS TIME. WILL CONTINUE TO MONITOR.
[2019-02-13 09:10] VITALS: BP 124/75
--- NOTE | 2019-02-13 12:00 | NUR ---
PT SITTING UP IN CHAIR. NO ACUTE DISTRESS. BREATHING EVEN AND UNLABORED ON RA. IV TO RFA, NO REDNESS OR SWELLING NOTED. FALL PRECAUTIONS IN PLACE. CALL LIGHT WITHIN REACH. MOTHER AT BEDSIDE. WILL CONTINUE TO MONITOR.
[2019-02-13 12:17] VITALS: BP 123/78
--- NOTE | 2019-02-13 13:35 | NUR ---
Follow-up Nutrition Assessment: 237T/B CARA PASTOR HR Dx: Ammonia. Edmundson toxicity PMHx: ADHD, Anxiety, bipolar, autism Labs: (02/13) BG 317H, K 2.9H, A1C 8.0H, WBC 13.3H Meds: D 10%, humulin, Lasix, Zofran, Abilify, restoril Diet: Regular diet PO Intake: (02/13) 35% Weights: (02/05) 120 kg, (02/06) 123.9 KG, (02/07) 124 KG, (02/10) 120 kg Skin: Open blister to L hand, optifoam to sacral area, ecchymosis to BUE Oscar: 13 I/Os: 3540/8500 (-4561) Edema: none GI: diarrhea this morning Last BM: 02/13 RDN Visit (02/13): Pt's mother was at bedside and said that pt ate some oatmeal and banana this morning.Pt's mother brought regular Gatorade for the patient and so I educated her about pt's high A1C levels and the need to control simple sugars in the diet. Pt's mother verabilsed understanding. Discussed recommendations with propellant charge zone assembler Samaria. She said that she will take telephone order from Dr. Veras regarding changing the diet order to [facility]. Estimated Nutritional Needs based on actual body weight 120 kg Energy: 3884-6586 vs 2431 kcal/day (25-30 kcal//kg using IBW: 81 kg vs. PSU 2003b for vent) Protein: 81-97g/d (1-1.2 g/kg/IBW for maintenance) Fluid: 1631-8694 ml/d (1 ml/kcal) or per MD Nutrition Diagnosis 1. 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 (ongoing) Intervention 1. Recommend [facility] diet. Monitor/Evaluate Goal: Have pt meet at least 75% of estimated needs Monitor: PO intake, Labs, GI function F/U in 3-5 days as moderate risk 02/16-
--- NOTE | 2019-02-13 13:35 | NUR ---
1. Recommend [facility] diet.
--- NOTE | 2019-02-13 15:59 | NUR ---
WOUND CARE EVALUATION NOTE: REASON FOR EVALUATION: COCCYX WOUND SKIN ASSESSMENT DONE WITH THIS 28 Y/O MALE PT [place] [facility] [place] LITHIUM TOXICITY. PAST MEDICAL HX INCLUDES DM, ANEMIA, BIPOLAR DISEASE. ALL ABOVE INFORMATION OBTAINED FROM ADMISSION H&P AND MOTHER, WHO IS AAX4. PT IS AAX4 ABLE TO FOLLOW DIRECTIONS, SKIN IS WARM AND DRY, BLE FEW HAIR GROWTH, NO EDEMA. DORSAL PEDAL PULSES PRESENT AND NORMAL. CAPILLARY REFILLED < 2 SEC. X 10 TOES. PLAN OF CARE DISCUSSED WITH PRIMARY RN. PT. AND PARENTS, FABIANA/ROSLYN. CAT SITTER ALSO EXPLAIN TO PARENTS DISCHARGE PLANNING. INTEGUMENTARY: - CLEAR FLUIDS BLISTER ON LEFT HAND BASE OF INDEX FINGER, SKIN INTACT 3X3 CM - CLEAR FLUIDS BLISTER ON LEFT FOOT [id number] WITH 1 CM TALL - LEFT LATERAL HAND OPEN BLISTER PARTIAL THICKNESS SKIN LOSS, 3X2CM SUPERFICIAL DEPTH, LARISSA WOUND SKIN INTACT -DTI TO SACROCOCCY 100% MAROON COLOR MEASUREMENT 6X8CM INCLUDES DTI FROM RIGHT TO LEFT BUTTOCKS WITH MULTIPLE CLOSED BLISTERS TO RIGHT AND LEFT BUTTOCKS -BILATERAL HEELS THICK CALLUS, SKIN INTACT RECOMMENDATIONS: -APPLY VERSATEL DRESSING COVER WITH DRY DRESSING Q5D AND PRN IF SOILING TO INTACT CLEAR FLUIDS BLISTER ON LEFT HAND BASE OF INDEX FINGER -APPLY VERSATEL DRESSING COVER WITH DRY DRESSING Q5D AND PRN IF SOILING TO INTACT CLEAR FLUIDS BLISTER ON LEFT PLANTAR -CLEANSE LEFT LATERAL HAND OPEN BLISTER WITH NORMAL SOLUTION AND APPLY VERSATEL DRESSING COVER WITH DRY DRESSING Q5D AND PRN IF SOILING -APPLY FORM DRESSING TO SACROCOCCY, RIGHT AND LEFT BUTTOCK, CHANGE Q7 DAYS AND PRN IF SOILING -APPLY HEELPROTECTORS TO HEELS WHEN IN BED -OFFLOAD BILATERAL HEELS BY PLACING PILLOWS UNDER CALVES UNLESS OTHERWISE CONTRAINDICATED -PRESSURE REDISTRIBUTION SURFACE THERAPY -ENCOURAGE PT TURN AND REPOSITION Q2H, OFFLOAD SACRALCOCCYX AND BUTTOCKS BY TURNING RIGHT AND LEFT -CONTINUE TO FOLLOW RD RECOMMENDATIONS ALL ABOVE RECOMMENDATIONS DISCUSSED WITH PRIMARY RN. PLEASE CONTACT WOUND CARE NURSE FOR ANY QUESTION AND CHANGE OF WOUND CONDITION.
[2019-02-13] MEDS ORDERED: EVEKEO10 MG (16:42)
[2019-02-13 16:44] VITALS: BP 123/78
--- NOTE | 2019-02-13 17:26 | NUR ---
PT RESTING IN BED WATCHING TV. NO ACUTE DISTRESS. VERSATEL DRESSINGS TO L HAND COVERED WITH GAUZE WRAP C/D/I. OPTIFOAM TO BUTTOCKS C/D/I. IV TO RFA WITH NO REDNESS OR SWELLING NOTED. FAMILY AT BEDSIDE. CALL LIGHT WITHIN REACH. WILL CONTINUE TO MONITOR.
[2019-02-13 17:59] VITALS: BP 114/68
--- NOTE | 2019-02-13 18:08 | NUR ---
GAVE REPORT TO BONITA BAUMANN FROM [facility]. PT GOING TO RM 45, RECEIVING DR. IS DR. COYLE. [facility] PT AND FAMILY AWARE AND AGREEABLE WITH PLAN OF CARE. WILL CONTINUE TO MONITOR.
--- NOTE | 2019-02-13 19:01 | NUR ---
PT HAD EPISODE OF LOOSE STOOL AND URINARY INCONTINENCE. PT CLEANED AND CHANGED INTO TRANSFER GOWN AND GIVEN TRANSFER BLANKET. TELE REMOVED. IV TO RFA, NO REDNESS OR SWELLING NOTED. BELONGINGS WITH PT. MOTHER AT BEDSIDE. BED IN LOW POSITION, CALL LIGHT WITHIN REACH. WILL ENDORSE TO ONCOMING SHIFT.
--- NOTE | 2019-02-13 20:43 | NUR ---
PT AWAKE AND ORIENTED. PT FAMILY REMAINS AT BEDSIDE AND ASSITS WITH PT CARE. PT FAMILY SIGNED DC PAPERWORK. TRANSPORT AT BEDSIDE AT THIS TIME. PT DENIES PAIN OR DISCOMFORT. NIGHT TIME MEDS GIVEN AT THIS TIME PER FAMILY REQUEST. ALL PT NEEDS MET. WILL ESCORT PT.
== END 2019-02-13 20:48 | DRG 130 ==
LOC: ED 15:44 → IC 18:30 → DU 02-10 15:55
PROVIDERS: Emergency Medicine; Internal Medicine; Internal Medicine Pulmonary Disease; Specialist; ADMIT Internal Medicine Pulmonary Disease
PROC: 5A1955Z Respiratory Ventilation, Greater than 96 Consecutive Hours (ICD-10-PCS; principal; 2019-02-03)
PROC: 0BH17EZ Insertion of Endotracheal Airway into Trachea, Via Natural or Artificial Opening (ICD-10-PCS; 2019-02-03)
PROC: 06HM33Z Insertion of Infusion Device into Right Femoral Vein, Percutaneous Approach (ICD-10-PCS; 2019-02-04)
PROC: B54BZZA Ultrasonography of Right Lower Extremity Veins, Guidance (ICD-10-PCS; 2019-02-04)
PROC: 5A1D80Z Performance of Urinary Filtration, Prolonged Intermittent, 6-18 hours Per Day (ICD-10-PCS; 2019-02-04)
PROC: 30233N1 Transfusion of Nonautologous Red Blood Cells into Peripheral Vein, Percutaneous Approach (ICD-10-PCS; 2019-02-05)
DX: J96.01 Acute respiratory failure with hypoxia (principal); N17.0 Acute kidney failure with tubular necrosis; J69.0 Pneumonitis due to inhalation of food and vomit; G93.41 Metabolic encephalopathy; E66.01 Morbid (severe) obesity due to excess calories; E11.9 Type 2 diabetes mellitus without complications; D63.8 Anemia in other chronic diseases classified elsewhere; E87.0 Hyperosmolality and hypernatremia; F31.9 Bipolar disorder, unspecified; F90.9 Attention-deficit hyperactivity disorder, unspecified type; F84.0 Autistic disorder; Y92.018 Other place in single-family (private) house as the place of occurrence of the external cause; F41.9 Anxiety disorder, unspecified; I10 Essential (primary) hypertension; Z79.899 Other long term (current) drug therapy; Z79.84 Long term (current) use of oral hypoglycemic drugs; Z71.3 Dietary counseling and surveillance; Z68.37 Body mass index [BMI] 37.0-37.9, adult; R04.0 Epistaxis; T43.595A Adverse effect of other antipsychotics and neuroleptics, initial encounter
CPT/HCPCS: 36556; 36600; 82962; 83880; 92526-GN; 92610; 97110-GP; 97116-GP; 97530-GP; A4628; B4164; J0132; J0456; J0610; J0696; J1644; J1650; J1815; J1940; J2060; J2704; J3475; J3490; J7030; J7042; J7050; J7070; J7613; P9016; Q0092